=== PATIENT | male | born 1965 | race African-American/Black ===

== ENCOUNTER 2016-10-25 00:17 | Inpatient (IN) | payer OTHER ==
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
[2016-10-25 00:34] VITALS: BMI 21.2
[2016-10-25] MEDS ORDERED: hydrOXYzine PAMOATE 25 MG CAPSULE (FP) PO PRN (00:34)
[2016-10-25] MEDS ORDERED: guaiFENesin/D-METHORPHAN HB 10 ML UNIT-DOSE CUPS PO PRN (00:34)
[2016-10-25] MEDS ORDERED: MENTHOL/PHENOL 1 EACH UD MM PRN (00:34)
[2016-10-25] MEDS ORDERED: chlordiazePOXIDE HCL 25 MG CAPSULE PO PRN (00:34)
[2016-10-25] MEDS ORDERED: P-EPHED 60MG/TRIPROLIDI 2.5MG TABLET PO PRN (00:34)
[2016-10-25] MEDS ORDERED: LOPERAMIDE HCL 2 MG CAPSULE PO PRN (00:34)
[2016-10-25] MEDS ORDERED: IBUPROFEN 400 MG TABLET (FP) PO PRN (00:34)
[2016-10-25] MEDS ORDERED: MAGNESIUM CITRATE 300 ML BOTTLE PO PRN (00:34)
[2016-10-25] MEDS ORDERED: ACETAMINOPHEN 325 MG TABLET (FP) PO PRN (00:34)
[2016-10-25] MEDS ORDERED: NICOTINE POLACRILEX 4 MG GUM BUC PRN (00:34)
[2016-10-25] MEDS ORDERED: chlordiazePOXIDE HCL 25 MG CAPSULE PO ONE (00:34)
[2016-10-25] MEDS ORDERED: MAGNESIUM HYDROX 2400MG/30ML ORAL SUSPENSION 30 ML CUP PO PRN (00:34)
[2016-10-25] MEDS ORDERED: MAG HYDROX/AL HYDROX/SIMETH 30 ML UNIT-DOSE CUP PO PRN (00:34)
[2016-10-25] MEDS: chlordiazePOXIDE HCL 25 MG CAPSULE PO SCH ×4 (05:30→22:18)
[2016-10-25] MEDS: NICOTINE 21 MG/24 HOURS TOPICAL PATCH TD SCH (10:23)
[2016-10-25] MEDS: PRENATAL VITAMINS W/ FOLIC ACID TABLET (FP) PO SCH (10:23)
--- NOTE | 2016-10-25 12:50 | EKG ---
Test Reason : Blood Pressure : / mmHG Vent. Rate : 061 BPM Atrial Rate : 061 BPM P-R Int : 190 ms QRS Dur : 084 ms QT Int : 378 ms P-R-T Axes : 067 074 053 degrees QTc Int : 380 ms NORMAL SINUS RHYTHM ST ELEVATION, CONSIDER EARLY REPOLARIZATION BORDERLINE ECG NO PREVIOUS ECGS AVAILABLE Confirmed by MINDY PRIDE MD ([id number]) on 10/25/2016 12:50:06 PM Referred By: Confirmed By:MINDY PRIDE MD
[2016-10-25 13:18] LABS: HIV 1 & 2 AB NEGATIVE; HIV 1 AGp24 NEGATIVE
[2016-10-25 14:44] LABS: URINE APPEARANCE CLEAR; URINE BILIRUBIN NEGATIVE (NEGATIVE); URINE BLOOD NEGATIVE (NEGATIVE); URINE COLOR YELLOW; URINE GLUCOSE (UA) NEGATIVE (NEGATIVE); URINE KETONE NEGATIVE (NEGATIVE); URINE LEUK ESTERASE NEGATIVE (NEGATIVE); URINE NITRITE NEGATIVE (NEGATIVE); URINE PROTEIN NEGATIVE (NEGATIVE); URINE UROBILINOGEN 4.0 E.U/dl mg/dL (0.2-1.0)
--- NOTE | 2016-10-25 15:16 | PN ---
[facility] Progress Note Note: Patient seen this morning. He reports feeling tired and just wants to sleep. He denies sob, chest pain, abdominal pain, n/v/c/d. He is presently resting in bed comfortably. Continue to monitor.
[2016-10-25] MEDS: THIAMINE HCL 100 MG TABLET (FP) PO SCH (22:18)
[2016-10-25] MEDS: diphenhydrAMINE HCL 50 MG CAPSULE PO PRN (22:18)
[2016-10-26] MEDS: chlordiazePOXIDE HCL 25 MG CAPSULE PO SCH ×4 (05:48→22:09)
[2016-10-26 10:08] LABS: MCH 28.6 pg (25.7-33.7); MCHC 33.8 g/dl (32.0-35.9); MEAN CELL VOLUME 84.6 fl (80-96); MEAN PLT VOLUME 9.4 fl (7.5-11.1); PLATELET COUNT 245 K/MM3 (134-434); RDW 14.4 % (11.9-15.9); WHITE BLOOD COUNT 6.2 K/mm3 (4.0-10.0)
[2016-10-26] MEDS: PRENATAL VITAMINS W/ FOLIC ACID TABLET (FP) PO SCH (10:15)
[2016-10-26] MEDS: NICOTINE 21 MG/24 HOURS TOPICAL PATCH TD SCH (10:17)
[2016-10-26 10:35] LABS: ALBUMIN 3.1 g/dl (3.4-5.0); ALK PHOS 59 U/L (45-117); ANION GAP 6 (8-16); BILIRUBIN,TOTAL 0.8 mg/dL (0.2-1.0); CALCIUM 8.6 mg/dL (8.5-10.1); CO2 29 mmol/L (21-32); CREATININE 1.2 mg/dL (0.7-1.3); GLUCOSE,RANDOM 69 mg/dL (74-106); SGOT/AST 26 U/L (15-37); SGPT/ALT 23 U/L (12-78); TOT PROT 5.5 g/dl (6.4-8.2)
--- NOTE | 2016-10-26 13:08 | PN ---
[facility] CIWA - CIWA Score Nausea/Vomitin-Mild Nausea/No Vomiting Muscle Tremors: 4-Moderate,w/Arms Extend Anxiety: 3 Agitation: 0-Normal Activity Paroxysmal Sweats: 3 Orientation: 2-Disoriented Date<2 days Tacttile Disturbances: 2-Mild Itch/Numbness/Burn Auditory Disturbances: 0-None Visual Disturbances: 3-Moderate Sensitivity Headache: 0-None Present CIWA-Ar Total Score: 18 S Progress Note (SOAP) Subjective: Tremors, Sweating. Objective: PT. A & O X 2 (DISORIENTED ABOUT DAY / DATE). NO ACUTE DISTRESS. 10/26/16 13:02 Vital Signs Temperature 97 F L 10/26/16 13:00 Pulse Rate 50 L 10/26/16 13:00 Respiratory Rate 20 10/26/16 13:00 Blood Pressure 121/85 10/26/16 13:00 O2 Sat by Pulse Oximetry (%) Laboratory Tests 10/25/16 10/25/16 10/26/16 07:45 09:20 06:00 WBC 6.2 RBC 4.51 Hgb 12.9 Hct 38.2 MCV 84.6 MCH 28.6 MCHC 33.8 RDW 14.4 Plt Count 245 MPV 9.4 Sodium Potassium Chloride Carbon Dioxide Anion Gap BUN Creatinine Creat Clearance w eGFR Random Glucose Calcium Total Bilirubin AST ALT Alkaline Phosphatase Total Protein Albumin Urine Color Yellow Urine Appearance Clear Urine pH 6.0 Ur Specific [place] 1.025 Urine Protein Negative Urine Glucose (UA) Negative Urine Ketones Negative Urine Blood Negative Urine Nitrite Negative Urine Bilirubin Negative Urine Urobilinogen 4.0 e.u/dl Ur Leukocyte Esterase Negative RPR Titer HIV 1&2 Antibody Screen Negative HIV P24 Antigen Negative 10/26/16 10/26/16 06:00 06:00 WBC RBC Hgb Hct MCV MCH MCHC RDW Plt Count MPV Sodium 144 Potassium 3.4 L Chloride 109 H Carbon Dioxide 29 Anion Gap 6 L BUN 19 H Creatinine 1.2 Creat Clearance w eGFR > 60 Random Glucose 69 L Calcium 8.6 Total Bilirubin 0.8 D AST 26 ALT 23 Alkaline Phosphatase 59 Total Protein 5.5 L Albumin 3.1 L Urine Color Urine Appearance Urine pH Ur Specific [place] Urine Protein Urine Glucose (UA) Urine Ketones Urine Blood Urine Nitrite Urine Bilirubin Urine Urobilinogen Ur Leukocyte Esterase RPR Titer Nonreactive HIV 1&2 Antibody Screen HIV P24 Antigen LABS NOTED. Assessment: 10/26/16 13:08 WITHDRAWAL SYMPTOMS. Plan: CONTINUE DETOX. K, 20 MEQ PO X1 NOW, THEN 20 MEQ PO BID AFTER.
--- NOTE | 2016-10-26 14:32 | CONSULT ---
[facility] Psychiatric Consult - Data Date of interview: 10/26/16 Admission source: [facility] Identifying data: Readmission to [facility] for this 51 y/o AA male seeking detox treatment on for alcohol,cocaine and marihuana dependence.Patient is single without children,domiciled,unemployed and supported on SSI benefits. Substance Abuse History: Discussed with patient in this session.Mr Ibarra confirms this report. Smoking Cessation. Smoking history: Current every day smoker. Have you smoked in the past 12 months: Yes. Aproximately how many cigarettes per day: 40. Cigars Per Day: 0. Hx Chewing Tobacco Use: No. Initiated information on smoking cessation: Yes. 'Breaking Loose' booklet given : 10/25/16. - Substance & Tx. History. Hx Alcohol Use: Yes. Hx Substance Use : Yes. Substance Use Type: Alcohol, Cocaine, Marijuana. Hx Substance Use Treatment: Yes. - Substances Abused. Alcohol. Route: Oral. Frequency: Daily. Amount used: BEER 1X6 PKS/LIQUOR 1/2 P/D. Age of first use: 30. Date of Last Use: 10/24/16. Crack. Route: Smoking. Frequency: 1-3 times last 30 days. Amount used: $20/EACH TIME. Age of first use: 32. Date of Last Use: 10/24/16. Marijuana/Hashish. Route: Smoking. Frequency: Daily. Amount used: $10. Age of first use: 16. Date of Last Use: 10/24/16 Medical History: Hypertension. Psychiatric History: Patient denies history of psychiatric hospitalizations.No psychiatric diagnosis reported.Vague historian.Mr Ibarra indicates that he sees a " therapist in town " because his female friend had " asked me to do so ".No history of suicide attempts.Not on psychotropic medications. Physical/Sexual Abuse/Trauma History: Patient denies. Additional Comment: Urine Drug Screen Results: THC-Marijuana, UJAN JOSÉ-Cocaine.Noted. Mental Status Exam - Mental Status Exam Alert and Oriented to: Time, Place, Person Cognitive Function: Good Patient Appearance: Well Groomed Mood: Hopeful, Euthymic Affect: Appropriate, Normal Range Patient Behavior: Fatigued, Appropriate, Cooperative Speech Pattern: Clear Voice Loudness: Normal Thought Process: Intact, Goal Oriented Thought Disorder: Not Present Hallucinations: Denies Suicidal Ideation: Denies Homicidal Ideation: Denies Insight/Judgement: Poor Sleep: Well Appetite: Good Muscle strength/Tone: Normal Gait/Station: Normal Psychiatric Findings - Problem List ([place] 1, 2,3) (1) Alcohol dependence Current Visit: Yes Status: Acute (2) Cocaine dependence Current Visit: Yes Status: Acute Qualifiers: Substance use status: uncomplicated Qualified Code(s): F14.20 - Cocaine dependence, uncomplicated (3) Marijuana dependence Current Visit: Yes Status: Acute (4) Nicotine dependence Current Visit: Yes Status: Acute Qualifiers: Nicotine product type: cigarettes Substance use status: uncomplicated Qualified Code(s): F17.210 - Nicotine dependence, cigarettes, uncomplicated - Initial Treatment Plan Initial Treatment Plan: Psychoeducation.Detoxification.Observation.Medications reconciliation : no known medications.
[2016-10-26] MEDS ORDERED: POTASSIUM CHLORIDE TABS 20 MEQ TABLET.ER (FP) PO ONE (15:15)
[2016-10-26] MEDS: POTASSIUM CHLORIDE TABS 20 MEQ TABLET.ER (FP) PO SCH (17:06)
[2016-10-26] MEDS: THIAMINE HCL 100 MG TABLET (FP) PO SCH (22:09)
[2016-10-26] MEDS: diphenhydrAMINE HCL 50 MG CAPSULE PO PRN (22:10)
[2016-10-27] MEDS: chlordiazePOXIDE 5 MG CAPSULE PO SCH ×4 (05:52→22:18)
[2016-10-27] MEDS: PRENATAL VITAMINS W/ FOLIC ACID TABLET (FP) PO SCH (10:11)
[2016-10-27] MEDS: POTASSIUM CHLORIDE TABS 20 MEQ TABLET.ER (FP) PO SCH ×2 (10:11→17:03)
[2016-10-27] MEDS: NICOTINE 21 MG/24 HOURS TOPICAL PATCH TD SCH (10:11)
--- NOTE | 2016-10-27 11:22 | PN ---
[facility] CIWA - CIWA Score Nausea/Vomitin-Mild Nausea/No Vomiting Muscle Tremors: 3 Anxiety: 4-Mod. Anxious/Guarded Agitation: 3 Paroxysmal Sweats: 3 Orientation: 0-Oriented Tacttile Disturbances: 2-Mild Itch/Numbness/Burn Auditory Disturbances: 0-None Visual Disturbances: 0-None Headache: 0-None Present CIWA-Ar Total Score: 16 BHS Progress Note (SOAP) Subjective: Tremors, Anxious, Fatigue. Objective: PT. A & O X 3, OBSERVED AMBULATING ON UNIT. NO ACUTE DISTRESS. 10/27/16 11:20 Vital Signs Temperature 97.9 F 10/27/16 09:25 Pulse Rate 49 L 10/27/16 09:25 Respiratory Rate 18 10/27/16 09:25 Blood Pressure 141/91 10/27/16 09:25 O2 Sat by Pulse Oximetry (%) Laboratory Tests 10/25/16 10/25/16 10/26/16 07:45 09:20 06:00 WBC 6.2 RBC 4.51 Hgb 12.9 Hct 38.2 MCV 84.6 MCH 28.6 MCHC 33.8 RDW 14.4 Plt Count 245 MPV 9.4 Sodium Potassium Chloride Carbon Dioxide Anion Gap BUN Creatinine Creat Clearance w eGFR Random Glucose Calcium Total Bilirubin AST ALT Alkaline Phosphatase Total Protein Albumin Urine Color Yellow Urine Appearance Clear Urine pH 6.0 Ur Specific [place] 1.025 Urine Protein Negative Urine Glucose (UA) Negative Urine Ketones Negative Urine Blood Negative Urine Nitrite Negative Urine Bilirubin Negative Urine Urobilinogen 4.0 e.u/dl Ur Leukocyte Esterase Negative RPR Titer HIV 1&2 Antibody Screen Negative HIV P24 Antigen Negative 10/26/16 10/26/16 06:00 06:00 WBC RBC Hgb Hct MCV MCH MCHC RDW Plt Count MPV Sodium 144 Potassium 3.4 L Chloride 109 H Carbon Dioxide 29 Anion Gap 6 L BUN 19 H Creatinine 1.2 Creat Clearance w eGFR > 60 Random Glucose 69 L Calcium 8.6 Total Bilirubin 0.8 D AST 26 ALT 23 Alkaline Phosphatase 59 Total Protein 5.5 L Albumin 3.1 L Urine Color Urine Appearance Urine pH Ur Specific [place] Urine Protein Urine Glucose (UA) Urine Ketones Urine Blood Urine Nitrite Urine Bilirubin Urine Urobilinogen Ur Leukocyte Esterase RPR Titer Nonreactive HIV 1&2 Antibody Screen HIV P24 Antigen LABS NOTED. Assessment: 10/27/16 11:20 WITHDRAWAL SYMPTOMS. HYPOKALEMIA. 10/27/16 11:22 Plan: CONTINUE DETOX.
[2016-10-27] MEDS: diphenhydrAMINE HCL 50 MG CAPSULE PO PRN (22:18)
[2016-10-27] MEDS: THIAMINE HCL 100 MG TABLET (FP) PO SCH (22:18)
[2016-10-28] MEDS: chlordiazePOXIDE HCL 10 MG CAPSULE PO SCH ×2 (07:41→10:32)
[2016-10-28 09:25] VITALS: BP 120/82; PULSE 57; TEMP 97.3
[2016-10-28] MEDS: NICOTINE 21 MG/24 HOURS TOPICAL PATCH TD SCH (10:12)
[2016-10-28] MEDS: POTASSIUM CHLORIDE TABS 20 MEQ TABLET.ER (FP) PO SCH (10:12)
[2016-10-28] MEDS: PRENATAL VITAMINS W/ FOLIC ACID TABLET (FP) PO SCH (10:12)
--- NOTE | 2016-10-28 16:40 | DS ---
[facility] Detox Discharge Summary Admission Date: 10/25/16 Discharge Date: 10/28/16 - History Present History: Alcohol Dependence, Cannabis Dependence, Cocaine Dependence Additional Comments: PATIENT GOING TO [facility]. PATIENT ADVISED TO FOLLOW -UP THERE PER DISCHARGE ARRANGEMENT. PATIENT DISCHARGED FROM UNIT IN STABLE MEDICAL CONDITION. Pertinent Past History: Anxiety / Depression. - Physical Exam Results Vital Signs: Vital Signs Temperature 97.3 F L 10/28/16 09:24 Pulse Rate 57 L 10/28/16 09:24 Respiratory Rate 18 10/28/16 09:24 Blood Pressure 120/82 10/28/16 09:24 O2 Sat by Pulse Oximetry (%) Pertinent Admission Physical Exam Findings: WITHDRAWAL SYMPTOMS. Laboratory Tests 10/25/16 10/25/16 10/26/16 07:45 09:20 06:00 WBC 6.2 RBC 4.51 Hgb 12.9 Hct 38.2 MCV 84.6 MCH 28.6 MCHC 33.8 RDW 14.4 Plt Count 245 MPV 9.4 Sodium Potassium Chloride Carbon Dioxide Anion Gap BUN Creatinine Creat Clearance w eGFR Random Glucose Calcium Total Bilirubin AST ALT Alkaline Phosphatase Total Protein Albumin Urine Color Yellow Urine Appearance Clear Urine pH 6.0 Ur Specific [place] 1.025 Urine Protein Negative Urine Glucose (UA) Negative Urine Ketones Negative Urine Blood Negative Urine Nitrite Negative Urine Bilirubin Negative Urine Urobilinogen 4.0 e.u/dl Ur Leukocyte Esterase Negative RPR Titer HIV 1&2 Antibody Screen Negative HIV P24 Antigen Negative 10/26/16 10/26/16 06:00 06:00 WBC RBC Hgb Hct MCV MCH MCHC RDW Plt Count MPV Sodium 144 Potassium 3.4 L Chloride 109 H Carbon Dioxide 29 Anion Gap 6 L BUN 19 H Creatinine 1.2 Creat Clearance w eGFR > 60 Random Glucose 69 L Calcium 8.6 Total Bilirubin 0.8 D AST 26 ALT 23 Alkaline Phosphatase 59 Total Protein 5.5 L Albumin 3.1 L Urine Color Urine Appearance Urine pH Ur Specific [place] Urine Protein Urine Glucose (UA) Urine Ketones Urine Blood Urine Nitrite Urine Bilirubin Urine Urobilinogen Ur Leukocyte Esterase RPR Titer Nonreactive HIV 1&2 Antibody Screen HIV P24 Antigen LABS NOTED. - Treatment Hospital Course: Detox Protocol Followed, Detoxed Safely, Responded well, Discharged Condition Good, Rehab Referral Accepted Patient has Accepted a Rehab Referral to: [facility]. - Medication Discharge Medications: Ambulatory Orders NK [No Known Home Medication] 04/11/14 - Diagnosis (1) Alcohol dependence Status: Acute (2) Cocaine dependence Status: Acute Qualifiers: Substance use status: uncomplicated Qualified Code(s): F14.20 - Cocaine dependence, uncomplicated (3) Marijuana dependence Status: Acute (4) Nicotine dependence Status: Chronic Qualifiers: Nicotine product type: cigarettes Substance use status: uncomplicated Qualified Code(s): F17.210 - Nicotine dependence, cigarettes, uncomplicated (5) Anxiety and depression Status: Chronic - AMA Did Patient Leave Against Medical Advice: No
== END 2016-10-28 12:52 | disposition other institution (70) | DRG 774 ==
LOC: YASAS 00:17 → Y3N 01:10
PROVIDERS: ADMIT Internal Medicine; ATTEND Internal Medicine
PROC: HZ2ZZZZ Detoxification Services for Substance Abuse Treatment (ICD-10-PCS; principal; 2016-10-28)
DX: F10.20 Alcohol dependence, uncomplicated (principal); F14.20 Cocaine dependence, uncomplicated; F12.20 Cannabis dependence, uncomplicated; F17.210 Nicotine dependence, cigarettes, uncomplicated; F41.8 Other specified anxiety disorders; Z87.828 Personal history of other (healed) physical injury and trauma
CPT/HCPCS: 36415; 80053; 81003; 85027; 86593; 87389; 93005; 93010

== ENCOUNTER 2016-10-28 12:17 | Inpatient (IN) | payer OTHER ==
--- NOTE | 2016-10-28 12:49 | HP ---
[facility] Rehab Assess/Revision - Admission History Ad[facility] Rehab [facility] Date of Admission to Rehab: 10/28/16 - Findings Detox History & Physical reviewed: Yes Concur with findings: Yes Comments/Additional Findings: for rehab as protocol
[2016-10-28] MEDS ORDERED: guaiFENesin/D-METHORPHAN HB 10 ML UNIT-DOSE CUPS PO PRN (12:51)
[2016-10-28] MEDS ORDERED: LOPERAMIDE HCL 2 MG CAPSULE PO PRN (12:51)
[2016-10-28] MEDS ORDERED: MAGNESIUM HYDROX 2400MG/30ML ORAL SUSPENSION 30 ML CUP PO PRN (12:51)
[2016-10-28] MEDS ORDERED: MAGNESIUM CITRATE 300 ML BOTTLE PO PRN (12:51)
[2016-10-28] MEDS ORDERED: IBUPROFEN 400 MG TABLET (FP) PO PRN (12:51)
[2016-10-28] MEDS ORDERED: hydrOXYzine PAMOATE 50 MG CAPSULE (FP) PO PRN (12:51)
[2016-10-28] MEDS ORDERED: ACETAMINOPHEN 325 MG TABLET (FP) PO PRN (12:51)
[2016-10-28] MEDS ORDERED: P-EPHED 60MG/TRIPROLIDI 2.5MG TABLET PO PRN (12:51)
[2016-10-28] MEDS ORDERED: MAG HYDROX/AL HYDROX/SIMETH 30 ML UNIT-DOSE CUP PO PRN (12:51)
[2016-10-28] MEDS ORDERED: MENTHOL/PHENOL 1 EACH UD MM PRN (12:51)
[2016-10-28] MEDS: THIAMINE HCL 100 MG TABLET (FP) PO SCH (22:07)
[2016-10-28] MEDS: diphenhydrAMINE HCL 50 MG CAPSULE PO PRN (22:07)
[2016-10-29] MEDS: POTASSIUM CHLORIDE TABS 20 MEQ TABLET.ER (FP) PO SCH (10:39)
[2016-10-29] MEDS: PRENATAL VITAMINS W/ FOLIC ACID TABLET (FP) PO SCH (10:39)
--- NOTE | 2016-10-29 13:10 | HP ---
Psychiatrist Admission - Data Date of interview: 10/29/16 Admission source: [facility] Identifying data: This is the forth 5N inpatient rehabilitation admission for this 51 year old single Black male who is single unmeployed and on SSI, residing in [place] with his sister. Medical History: HTN, smokes cigaretets 30 a day. Psychiatric History: Patient denies history of psychiatric hospitalization, reports he saw the therapist "just to talk". Physical/Sexual Abuse/Trauma History: Denies. Vital Signs: Vital Signs - 24 hr 10/28/16 10/29/16 10/29/16 13:22 00:30 03:30 Temperature 98 F Pulse Rate 60 Respiratory 18 18 18 Rate Blood Pressure 126/84 10/29/16 07:05 Temperature 97.6 F Pulse Rate 53 L Respiratory 18 Rate Blood Pressure 144/89 Allergies/Adverse Reactions: Allergies Allergy/AdvReac Type Severity Reaction Status Date / Time No Known Allergies Allergy Verified 10/28/16 13:47 Date of last physical exam: 10/24/16 Concur with the findings of this exam: Yes - Substance Abuse/Tx History Hx Alcohol Use: Yes (started at age of 30, beer 1x6pks daily, liquor 1/2 pint ) Hx Substance Use: Yes Substance Use Type: Cocaine (started at age 32, 1-3 times last months for $20.) , Marijuana (daily use) Hx Substance Use Treatment: Yes - Admission Criteria Previous failed treatment: Yes Poor recovery environment: Yes Comorbidities: Yes Lacks judgement: Yes Mental Status Exam - Mental Status Exam Alert and Oriented to: Time, Place, Person Cognitive Function: Good Patient Appearance: Well Groomed Mood: Sad Affect: Appropriate, Mood Congruent, Normal Range, Blunted Patient Behavior: Appropriate, Cooperative Speech Pattern: Clear, Appropriate Voice Loudness: Normal Thought Process: Goal Oriented Thought Disorder: Not Present Hallucinations: Denies Suicidal Ideation: Denies Homicidal Ideation: Denies Insight/Judgement: Fair Sleep: Fair Appetite: Fair Muscle strength/Tone: Normal Gait/Station: Normal Psychiatric Findings - Problem List ([place] 1, 2,3) (1) Alcohol dependence Current Visit: No Status: Acute (2) Cocaine dependence Current Visit: No Status: Acute Qualifiers: Substance use status: uncomplicated Qualified Code(s): F14.20 - Cocaine dependence, uncomplicated (3) Marijuana dependence Current Visit: No Status: Acute (4) Drug-induced mood disorder Current Visit: No Status: Chronic - Initial Treatment Plan Initial Treatment Plan: monitor rpogress as needed.
[2016-10-29] MEDS: THIAMINE HCL 100 MG TABLET (FP) PO SCH (21:49)
[2016-10-29] MEDS: diphenhydrAMINE HCL 50 MG CAPSULE PO PRN (21:50)
[2016-10-30] MEDS: PRENATAL VITAMINS W/ FOLIC ACID TABLET (FP) PO SCH (10:43)
[2016-10-30] MEDS: POTASSIUM CHLORIDE TABS 20 MEQ TABLET.ER (FP) PO SCH (10:43)
[2016-10-30] MEDS: THIAMINE HCL 100 MG TABLET (FP) PO SCH (21:42)
[2016-10-30] MEDS: diphenhydrAMINE HCL 50 MG CAPSULE PO PRN (21:42)
[2016-10-31] MEDS: PRENATAL VITAMINS W/ FOLIC ACID TABLET (FP) PO SCH (10:11)
[2016-10-31] MEDS: POTASSIUM CHLORIDE TABS 20 MEQ TABLET.ER (FP) PO SCH (10:11)
[2016-10-31] MEDS: diphenhydrAMINE HCL 50 MG CAPSULE PO PRN (21:29)
[2016-10-31] MEDS: THIAMINE HCL 100 MG TABLET (FP) PO SCH (21:29)
[2016-11-01] MEDS: PRENATAL VITAMINS W/ FOLIC ACID TABLET (FP) PO SCH (10:28)
[2016-11-01] MEDS: POTASSIUM CHLORIDE TABS 20 MEQ TABLET.ER (FP) PO SCH (10:28)
[2016-11-01] MEDS: THIAMINE HCL 100 MG TABLET (FP) PO SCH (22:04)
[2016-11-01] MEDS: diphenhydrAMINE HCL 50 MG CAPSULE PO PRN (22:04)
[2016-11-02 10:20] LABS: ANION GAP 7 (8-16); CALCIUM 8.8 mg/dL (8.5-10.1); CO2 30 mmol/L (21-32); GLUCOSE,RANDOM 80 mg/dL (74-106)
[2016-11-02 10:21] LABS: CREATININE 1.1 mg/dL (0.7-1.3)
[2016-11-02] MEDS: PRENATAL VITAMINS W/ FOLIC ACID TABLET (FP) PO SCH (10:53)
--- NOTE | 2016-11-02 11:40 | PN ---
S Progress Note Note: Laboratory Last Values Sodium 141 mmol/L (136-145) 11/02/16 06:30 Potassium 4.3 mmol/L (3.5-5.1) D 11/02/16 06:30 Chloride 104 mmol/L (98-107) 11/02/16 06:30 Carbon Dioxide 30 mmol/L (21-32) 11/02/16 06:30 Anion Gap 7 (8-16) L 11/02/16 06:30 BUN 23 mg/dL (7-18) H D 11/02/16 06:30 Creatinine 1.1 mg/dL (0.7-1.3) 11/02/16 06:30 Random Glucose 80 mg/dL (74-106) 11/02/16 06:30 Calcium 8.8 mg/dL (8.5-10.1) 11/02/16 06:30 encourage oral fluid repeat bmp next week
[2016-11-02] MEDS ORDERED: COLLOIDAL OATMEAL 1 BAR EACH TP PRN (12:51)
[2016-11-02] MEDS: diphenhydrAMINE HCL 50 MG CAPSULE PO PRN (21:55)
[2016-11-02] MEDS: THIAMINE HCL 100 MG TABLET (FP) PO SCH (21:55)
[2016-11-03] MEDS: PRENATAL VITAMINS W/ FOLIC ACID TABLET (FP) PO SCH (10:56)
[2016-11-03] MEDS: THIAMINE HCL 100 MG TABLET (FP) PO SCH (21:43)
[2016-11-03] MEDS: diphenhydrAMINE HCL 50 MG CAPSULE PO PRN (21:44)
[2016-11-04 07:01] VITALS: TEMP 98.3
[2016-11-04] MEDS: PRENATAL VITAMINS W/ FOLIC ACID TABLET (FP) PO SCH (10:21)
[2016-11-04] MEDS: diphenhydrAMINE HCL 50 MG CAPSULE PO PRN (22:04)
[2016-11-04] MEDS: THIAMINE HCL 100 MG TABLET (FP) PO SCH (22:04)
[2016-11-05 07:21] VITALS: BP 140/97; PULSE 64
[2016-11-05] MEDS: PRENATAL VITAMINS W/ FOLIC ACID TABLET (FP) PO SCH (10:17)
--- NOTE | 2016-11-05 10:45 | PN ---
Psychiatric Progress Note Vital Signs: Vital Signs Period Temp Pulse Resp BP Sys/Hayes Pulse Ox Last 24 Hr 98.3 F 64 16-16 140/97 Date of Session: 11/05/16 Chief Complaint:: discharge visit HPI: Patient has addressed cocaine, cannabis, alcohol dependence comorbid drug induced mood disorder. ROS: HTN medically managed. Current Medications: Active Medications Generic Name Dose Route Start Last Admin Trade Name Freq PRN Reason Stop Dose Admin Acetaminophen 650 mg 10/28/16 12:51 Tylenol - PO Q4H PRN FEVER OR PAIN Al Hydroxide/Mg Hydroxide 30 ml 10/28/16 12:51 Mylanta Oral Suspension - PO Q6H PRN DYSPEPSIA Colloidal Oatmeal 1 applic 11/02/16 12:51 11/02/16 15:44 Aveeno Soap - TP 1 applic DAILY PRN Administration HYGEINE Diphenhydramine HCl 50 mg 10/28/16 12:51 11/04/16 22:04 Benadryl - PO 50 mg HSMR1 PRN Administration FOR ITCHING Eucalyptus/Menthol/Phenol/Sorbitol 1 each 10/28/16 12:51 Cepastat Lozenge - MM Q4H PRN SORE THROAT Guaifenesin 10 ml 10/28/16 12:51 Robitussin Dm - PO Q6H PRN COUGH Hydroxyzine Pamoate 50 mg 10/28/16 12:51 Vistaril - PO Q4H PRN AGITATION Ibuprofen 400 mg 10/28/16 12:51 Motrin - PO Q6H PRN PAIN Loperamide HCl 4 mg 10/28/16 12:51 Imodium - PO Q6H PRN DIARRHEA Magnesium Hydroxide 30 ml 10/28/16 12:51 Milk Of Magnesia - PO DAILY PRN CONSTIPATION Multivit/Folic Acid/Iron 1 tab 10/29/16 10:00 11/05/16 10:17 Vitamins ([facility]) - PO 1 tab DAILY TANVI Administration Pseudoephedrine/Triprolidine 1 combo 10/28/16 12:51 Actifed - PO TID PRN NASAL CONGESTION Thiamine HCl 100 mg 10/28/16 22:00 11/04/16 22:04 Vitamin B1 - PO 100 mg HS TANVI Administration Current Side Effect: No Lab tests ordered: No Lab tests reviewed: Yes Provider note:: Patient completed today his treatment and met his goals, will continue to address his issues at the next level of care([facility] opd). He understands the negative impact of addiction on his major life areas and motivated to continue maintain abstinence. Patient was encouraged to utilize all supports available to prevent relapses. Patient is stable for discharge today. Total face to face time:: 15 Mental Status Exam - Mental Status Exam Alert and Oriented to: Time, Place, Person Cognitive Function: Good Patient Appearance: Well Groomed Mood: Hopeful Affect: Appropriate, Mood Congruent Patient Behavior: Appropriate, Cooperative Speech Pattern: Clear, Appropriate Voice Loudness: Normal Thought Process: Intact, Goal Oriented Thought Disorder: Not Present Hallucinations: Denies Suicidal Ideation: Denies Homicidal Ideation: Denies Insight/Judgement: Fair Sleep: Fair Appetite: Fair Muscle strength/Tone: Normal Gait/Station: Normal Psychiatric Treatment Plan - Problem List (2) Cocaine dependence Qualifiers: Substance use status: uncomplicated Qualified Code(s): F14.20 - Cocaine dependence, uncomplicated
== END 2016-11-05 11:15 | disposition home or self-care (01) | DRG 772 ==
LOC: YASAS 12:17 → Y5N 12:18
PROVIDERS: ADMIT Psychiatry & Neurology Psychiatry; ATTEND Psychiatry & Neurology Psychiatry
PROC: HZ42ZZZ Group Counseling for Substance Abuse Treatment, Cognitive-Behavioral (ICD-10-PCS; principal; 2016-10-28)
DX: F10.20 Alcohol dependence, uncomplicated (principal); F14.20 Cocaine dependence, uncomplicated; F12.20 Cannabis dependence, uncomplicated; F17.210 Nicotine dependence, cigarettes, uncomplicated; F19.24 Other psychoactive substance dependence with psychoactive substance-induced mood disorder
CPT/HCPCS: 36415; 80048

== ENCOUNTER 2017-01-14 13:54 | Inpatient (IN) | payer OTHER ==
[2017-01-14 16:57] VITALS: BMI 20.6
[2017-01-14] MEDS ORDERED: IBUPROFEN 400 MG TABLET (FP) PO PRN (18:39)
[2017-01-14] MEDS ORDERED: MENTHOL/PHENOL 1 EACH UD MM PRN (18:39)
[2017-01-14] MEDS ORDERED: MAG HYDROX/AL HYDROX/SIMETH 30 ML UNIT-DOSE CUP PO PRN (18:39)
[2017-01-14] MEDS ORDERED: MAGNESIUM CITRATE 300 ML BOTTLE PO PRN (18:39)
[2017-01-14] MEDS ORDERED: ACETAMINOPHEN 325 MG TABLET (FP) PO PRN (18:39)
[2017-01-14] MEDS ORDERED: LOPERAMIDE HCL 2 MG CAPSULE PO PRN (18:39)
[2017-01-14] MEDS ORDERED: P-EPHED 60MG/TRIPROLIDI 2.5MG TABLET PO PRN (18:39)
[2017-01-14] MEDS ORDERED: guaiFENesin/D-METHORPHAN HB 10 ML UNIT-DOSE CUPS PO PRN (18:39)
[2017-01-14] MEDS ORDERED: MAGNESIUM HYDROX 2400MG/30ML ORAL SUSPENSION 30 ML CUP PO PRN (18:39)
[2017-01-14] MEDS ORDERED: chlordiazePOXIDE HCL 25 MG CAPSULE PO PRN (18:39)
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
[2017-01-14 22:13] LABS: URINE APPEARANCE CLEAR; URINE BILIRUBIN NEGATIVE (NEGATIVE); URINE BLOOD NEGATIVE (NEGATIVE); URINE COLOR DKYELLOW; URINE GLUCOSE (UA) NEGATIVE (NEGATIVE); URINE KETONE NEGATIVE (NEGATIVE); URINE NITRITE NEGATIVE (NEGATIVE); URINE PROTEIN NEGATIVE (NEGATIVE); URINE UROBILINOGEN 4.0 E.U/dl mg/dL (0.2-1.0)
[2017-01-14] MEDS: chlordiazePOXIDE HCL 25 MG CAPSULE PO SCH (22:18)
[2017-01-14] MEDS: THIAMINE HCL 100 MG TABLET (FP) PO SCH (22:18)
[2017-01-15] MEDS: chlordiazePOXIDE HCL 25 MG CAPSULE PO SCH ×4 (05:16→22:36)
[2017-01-15 09:47] LABS: MCH 28.1 pg (25.7-33.7); MCHC 34.1 g/dl (32.0-35.9); MEAN CELL VOLUME 82.3 fl (80-96); MEAN PLT VOLUME 8.8 fl (7.5-11.1); PLATELET COUNT 225 K/MM3 (134-434); RDW 14.5 % (11.9-15.9); WHITE BLOOD COUNT 7.5 K/mm3 (4.0-10.0)
[2017-01-15] MEDS: PRENATAL VITAMINS W/ FOLIC ACID TABLET (FP) PO SCH (10:15)
[2017-01-15 11:07] LABS: URINE LEUK ESTERASE Negative (NEGATIVE)
[2017-01-15 11:08] LABS: CALCIUM 8.4 mg/dL (8.5-10.1)
[2017-01-15 11:15] LABS: ALK PHOS 66 U/L (45-117); ANION GAP 9 (8-16); BILIRUBIN,TOTAL 0.6 mg/dL (0.2-1.0); CO2 26 mmol/L (21-32); CREATININE 1.1 mg/dL (0.7-1.3); GLUCOSE,RANDOM 94 mg/dL (74-106); SGOT/AST 16 U/L (15-37); SGPT/ALT 23 U/L (12-78); TOT PROT 5.4 g/dl (6.4-8.2)
--- NOTE | 2017-01-15 11:58 | EKG ---
Test Reason : Blood Pressure : / mmHG Vent. Rate : 059 BPM Atrial Rate : 059 BPM P-R Int : 180 ms QRS Dur : 072 ms QT Int : 390 ms P-R-T Axes : 062 080 061 degrees QTc Int : 386 ms SINUS BRADYCARDIA MODERATE VOLTAGE CRITERIA FOR LVH, MAY BE NORMAL VARIANT CANNOT RULE OUT SEPTAL INFARCT , AGE UNDETERMINED ABNORMAL ECG WHEN COMPARED WITH ECG OF 25-OCT-2016 00:41, MINIMAL CRITERIA FOR SEPTAL INFARCT ARE NOW PRESENT ST NO LONGER ELEVATED IN ANTERIOR LEADS Confirmed by MELISSA HAMILTON MD ([id number]) on 01/15/2017 11:58:31 AM Referred By: Confirmed By:MELISSA HAMILTON MD
[2017-01-15] MEDS ORDERED: FLU VACCINE QUAD 60 MCG/0.5 ML (MDV 17-18) IM ONE (12:00)
[2017-01-15] MEDS: THIAMINE HCL 100 MG TABLET (FP) PO SCH (22:36)
[2017-01-16] MEDS: chlordiazePOXIDE HCL 25 MG CAPSULE PO SCH ×3 (05:16→17:10)
[2017-01-16] MEDS: PRENATAL VITAMINS W/ FOLIC ACID TABLET (FP) PO SCH (11:33)
--- NOTE | 2017-01-16 13:36 | PN ---
S CIWA - CIWA Score Nausea/Vomitin Muscle Tremors: 3 Anxiety: 3 Agitation: 2 Paroxysmal Sweats: 1-Minimal Palms Moist Orientation: 0-Oriented Tacttile Disturbances: 1-Very Mild Itch/Numbness Auditory Disturbances: 1-Very Mild Visual Disturbances: 0-None Headache: 2-Mild CIWA-Ar Total Score: 16 BHS Progress Note (SOAP) Subjective: alert,irritable,anxious,interrupted sleep,tremor Objective: 01/16/17 13:34 Vital Signs Temperature 98.0 F 01/16/17 10:32 Pulse Rate 57 L 01/16/17 10:32 Respiratory Rate 18 01/16/17 10:32 Blood Pressure 139/88 01/16/17 10:32 O2 Sat by Pulse Oximetry (%) ekg sinus bradycardia 57/min inverted t in vi,v2 no chest pain,no sob,no dizziness Laboratory Last Values WBC 7.5 K/mm3 (4.0-10.0) 01/15/17 07:35 RBC 4.69 M/mm3 (4.00-5.60) 01/15/17 07:35 Hgb 13.2 GM/dL (11.7-16.9) 01/15/17 07:35 Hct 38.6 % (35.4-49) 01/15/17 07:35 MCV 82.3 fl (80-96) 01/15/17 07:35 MCH 28.1 pg (25.7-33.7) 01/15/17 07:35 MCHC 34.1 g/dl (32.0-35.9) 01/15/17 07:35 RDW 14.5 % (11.9-15.9) 01/15/17 07:35 Plt Count 225 K/MM3 (134-434) 01/15/17 07:35 MPV 8.8 fl (7.5-11.1) 01/15/17 07:35 Sodium 144 mmol/L (136-145) 01/15/17 07:35 Potassium 3.7 mmol/L (3.5-5.1) 01/15/17 07:35 Chloride 109 mmol/L (98-107) H 01/15/17 07:35 Carbon Dioxide 26 mmol/L (21-32) 01/15/17 07:35 Anion Gap 9 (8-16) 01/15/17 07:35 BUN 24 mg/dL (7-18) H 01/15/17 07:35 Creatinine 1.1 mg/dL (0.7-1.3) 01/15/17 07:35 Creat Clearance w eGFR > 60 (>60) 01/15/17 07:35 Random Glucose 94 mg/dL (74-106) 01/15/17 07:35 Calcium 8.4 mg/dL (8.5-10.1) L 01/15/17 07:35 Total Bilirubin 0.6 mg/dL (0.2-1.0) D 01/15/17 07:35 AST 16 U/L (15-37) D 01/15/17 07:35 ALT 23 U/L (12-78) 01/15/17 07:35 Alkaline Phosphatase 66 U/L (45-117) 01/15/17 07:35 Total Protein 5.4 g/dl (6.4-8.2) L 01/15/17 07:35 Albumin 3.0 g/dl (3.4-5.0) L 01/15/17 07:35 Urine Color Dkyellow 01/14/17 21:50 Urine Appearance Clear 01/14/17 21:50 Urine pH 7.0 (5.0-8.0) 01/14/17 21:50 Ur Specific [place] 1.015 (1.001-1.035) 01/14/17 21:50 Urine Protein Negative (NEGATIVE) 01/14/17 21:50 Urine Glucose (UA) Negative (NEGATIVE) 01/14/17 21:50 Urine Ketones Negative (NEGATIVE) 01/14/17 21:50 Urine Blood Negative (NEGATIVE) 01/14/17 21:50 Urine Nitrite Negative (NEGATIVE) 01/14/17 21:50 Urine Bilirubin Negative (NEGATIVE) 01/14/17 21:50 Urine Urobilinogen 4.0 e.u/dl mg/dL (0.2-1.0) 01/14/17 21:50 Ur Leukocyte Esterase Negative (NEGATIVE) 01/14/17 21:50 RPR Titer Nonreactive (NONREACTIVE) 01/15/17 07:35 Assessment: 01/16/17 13:36 withdrawal symptom Plan: continue detox,ensure plus 120 mls po bid
[2017-01-16] MEDS: THIAMINE HCL 100 MG TABLET (FP) PO SCH (22:08)
[2017-01-16] MEDS: chlordiazePOXIDE 5 MG CAPSULE PO SCH (22:08)
[2017-01-17] MEDS: chlordiazePOXIDE 5 MG CAPSULE PO SCH ×3 (05:35→17:58)
[2017-01-17] MEDS: PRENATAL VITAMINS W/ FOLIC ACID TABLET (FP) PO SCH (10:14)
--- NOTE | 2017-01-17 10:38 | PN ---
S Progress Note (SOAP) Subjective: alert,irritable,anxious,interrupted sleep Objective: 01/17/17 10:37 Vital Signs Temperature 96 F L 01/17/17 10:28 Pulse Rate 60 01/17/17 10:28 Respiratory Rate 18 01/17/17 10:28 Blood Pressure 141/85 01/17/17 10:28 O2 Sat by Pulse Oximetry (%) Assessment: 01/17/17 10:38 withdrawal symptom Plan: continue detox,discharge in am
[2017-01-17] MEDS: chlordiazePOXIDE HCL 10 MG CAPSULE PO SCH (22:10)
[2017-01-17] MEDS: THIAMINE HCL 100 MG TABLET (FP) PO SCH (22:10)
[2017-01-18] MEDS: chlordiazePOXIDE HCL 10 MG CAPSULE PO SCH ×2 (05:39→13:23)
--- NOTE | 2017-01-18 08:43 | PN ---
S CIWA - CIWA Score Nausea/Vomitin-No Nausea/No Vomiting Muscle Tremors: 4-Moderate,w/Arms Extend Anxiety: 3 Agitation: 3 Paroxysmal Sweats: 3 Orientation: 0-Oriented Tacttile Disturbances: 0-None Auditory Disturbances: 0-None Visual Disturbances: 0-None Headache: 0-None Present CIWA-Ar Total Score: 13 BHS Progress Note (SOAP) Subjective: irritable agitation sweats interrupted sleep Objective: 01/15/17 08:41 Vital Signs (72 hours) 01/15/17 01/15/17 01/15/17 10:21 15:03 18:29 Temperature 97.5 F L 97.3 F L 98.2 F Pulse Rate 59 L 69 64 Respiratory 18 20 18 Rate Blood Pressure 125/88 132/89 140/73 01/15/17 01/16/17 01/16/17 23:04 00:30 03:30 Temperature 98.2 F Pulse Rate 65 Respiratory 18 18 18 Rate Blood Pressure 126/90 01/16/17 01/16/17 01/16/17 06:25 10:32 15:12 Temperature 96.1 F L 98.0 F 98.2 F Pulse Rate 54 L 57 L 62 Respiratory 18 18 18 Rate Blood Pressure 101/71 139/88 119/83 01/16/17 01/16/17 01/17/17 18:49 23:29 00:30 Temperature 97.7 F 97.6 F Pulse Rate 71 64 Respiratory 18 18 18 Rate Blood Pressure 102/70 127/93 01/17/17 01/17/17 01/17/17 03:30 06:19 10:28 Temperature 97.3 F L 96 F L Pulse Rate 57 L 60 Respiratory 18 18 18 Rate Blood Pressure 130/90 141/85 01/17/17 01/17/17 01/17/17 13:42 18:25 22:47 Temperature 96 F L 97.7 F 97.0 F L Pulse Rate 60 68 59 L Respiratory 18 18 18 Rate Blood Pressure 133/86 126/77 123/80 01/18/17 01/18/17 00:30 06:08 Temperature 97.7 F Pulse Rate 71 Respiratory 18 18 Rate Blood Pressure 131/80 Laboratory Tests 01/14/17 01/15/17 01/15/17 21:50 07:35 07:35 WBC 7.5 RBC 4.69 Hgb 13.2 Hct 38.6 MCV 82.3 MCH 28.1 MCHC 34.1 RDW 14.5 Plt Count 225 MPV 8.8 Sodium 144 Potassium 3.7 Chloride 109 H Carbon Dioxide 26 Anion Gap 9 BUN 24 H Creatinine 1.1 Creat Clearance w eGFR > 60 Random Glucose 94 Calcium 8.4 L Total Bilirubin 0.6 D AST 16 D ALT 23 Alkaline Phosphatase 66 Total Protein 5.4 L Albumin 3.0 L Urine Color Dkyellow Urine Appearance Clear Urine pH 7.0 Ur Specific [place] 1.015 Urine Protein Negative Urine Glucose (UA) Negative Urine Ketones Negative Urine Blood Negative Urine Nitrite Negative Urine Bilirubin Negative Urine Urobilinogen 4.0 e.u/dl Ur Leukocyte Esterase Negative RPR Titer 01/15/17 07:35 WBC RBC Hgb Hct MCV MCH MCHC RDW Plt Count MPV Sodium Potassium Chloride Carbon Dioxide Anion Gap BUN Creatinine Creat Clearance w eGFR Random Glucose Calcium Total Bilirubin AST ALT Alkaline Phosphatase Total Protein Albumin Urine Color Urine Appearance Urine pH Ur Specific [place] Urine Protein Urine Glucose (UA) Urine Ketones Urine Blood Urine Nitrite Urine Bilirubin Urine Urobilinogen Ur Leukocyte Esterase RPR Titer Nonreactive aaox3 ambulating no acute distress Assessment: 01/15/17 08:42 withdrawal sx Plan: continue detox increase fluids
--- NOTE | 2017-01-18 08:44 | DS ---
[facility] Detox Discharge Summary Admission Date: 01/14/17 Discharge Date: 01/18/17 - History Present History: Alcohol Dependence, Cannabis Dependence, Cocaine Dependence - Physical Exam Results Vital Signs: Vital Signs Temperature 97.7 F 01/18/17 06:08 Pulse Rate 71 01/18/17 06:08 Respiratory Rate 18 01/18/17 06:08 Blood Pressure 131/80 01/18/17 06:08 O2 Sat by Pulse Oximetry (%) - Treatment Hospital Course: Detox Protocol Followed, Detoxed Safely, Responded well, Discharged Condition Good, Rehab Referral Accepted - Medication Discharge Medications: Ambulatory Orders NK [No Known Home Medication] 04/11/14 - Diagnosis (1) weight loss Current Visit: Yes Status: Chronic (2) Alcohol dependence with uncomplicated withdrawal Current Visit: Yes Status: Chronic (3) Nicotine dependence Current Visit: Yes Status: Chronic Qualifiers: Nicotine product type: cigarettes Substance use status: uncomplicated Qualified Code(s): F17.210 - Nicotine dependence, cigarettes, uncomplicated (4) Cannabis dependence, uncomplicated Current Visit: Yes Status: Chronic (5) Cocaine dependence, uncomplicated Current Visit: Yes Status: Chronic (6) syncope alcohol related Current Visit: No Status: Active (7) Alcohol-induced mood disorder Current Visit: No Status: Acute (8) Cocaine dependence Current Visit: No Status: Chronic Qualifiers: Substance use status: uncomplicated Qualified Code(s): F14.20 - Cocaine dependence, uncomplicated (9) Anxiety and depression Current Visit: No Status: Chronic (10) Drug-induced mood disorder Current Visit: No Status: Chronic (11) Bipolar I disorder Current Visit: No Status: Suspected - AMA Did Patient Leave Against Medical Advice: No
[2017-01-18 09:43] VITALS: BP 128/84; PULSE 63; TEMP 97.9
[2017-01-18] MEDS: PRENATAL VITAMINS W/ FOLIC ACID TABLET (FP) PO SCH (10:13)
== END 2017-01-18 13:53 | disposition home or self-care (01) | DRG 774 ==
LOC: YASAS 13:54 → Y6N 18:50
PROVIDERS: ADMIT Internal Medicine; ATTEND Internal Medicine
PROC: HZ2ZZZZ Detoxification Services for Substance Abuse Treatment (ICD-10-PCS; principal; 2017-01-14)
DX: F10.230 Alcohol dependence with withdrawal, uncomplicated (principal); F10.24 Alcohol dependence with alcohol-induced mood disorder; F14.20 Cocaine dependence, uncomplicated; F12.20 Cannabis dependence, uncomplicated; F17.210 Nicotine dependence, cigarettes, uncomplicated; F41.8 Other specified anxiety disorders; F19.24 Other psychoactive substance dependence with psychoactive substance-induced mood disorder; F31.89 Other bipolar disorder; R00.1 Bradycardia, unspecified; Z86.79 Personal history of other diseases of the circulatory system; Z87.898 Personal history of other specified conditions
CPT/HCPCS: 36415; 80053; 81003; 85027; 86593; 93005; 93010

== ENCOUNTER 2018-04-11 14:30 | Inpatient (IN) | payer OTHER ==
[2018-04-11 16:50] VITALS: BMI 28.3
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
[2018-04-11] MEDS ORDERED: ACETAMINOPHEN 325 MG TABLET (FP) PO PRN (18:22)
[2018-04-11] MEDS ORDERED: MENTHOL/PHENOL 1 EACH UD MM PRN (18:22)
[2018-04-11] MEDS ORDERED: MAGNESIUM CITRATE 300 ML BOTTLE PO PRN (18:22)
[2018-04-11] MEDS ORDERED: hydrOXYzine PAMOATE 50 MG CAPSULE (FP) PO PRN (18:22)
[2018-04-11] MEDS ORDERED: MAG HYDROX/AL HYDROX/SIMETH 30 ML UNIT-DOSE CUP PO PRN (18:22)
[2018-04-11] MEDS ORDERED: guaiFENesin/D-METHORPHAN HB 10 ML UNIT-DOSE CUPS PO PRN (18:22)
[2018-04-11] MEDS ORDERED: IBUPROFEN 400 MG TABLET (FP) PO PRN (18:22)
[2018-04-11] MEDS ORDERED: LOPERAMIDE HCL 2 MG CAPSULE PO PRN (18:22)
[2018-04-11] MEDS ORDERED: MAGNESIUM HYDROX 2400MG/30ML ORAL SUSPENSION 30 ML CUP PO PRN (18:22)
[2018-04-11] MEDS ORDERED: P-EPHED 60MG/TRIPROLIDI 2.5MG TABLET PO PRN (18:22)
[2018-04-11] MEDS ORDERED: chlordiazePOXIDE HCL 25 MG CAPSULE PO PRN (18:24)
[2018-04-11] MEDS ORDERED: chlordiazePOXIDE HCL 25 MG CAPSULE PO ONE (19:00)
[2018-04-11] MEDS ORDERED: AMMONIUM LACTATE 12% LOTION 225 GM BOTTLE TP PRN (20:00)
[2018-04-11] MEDS: chlordiazePOXIDE HCL 25 MG CAPSULE PO SCH (22:20)
[2018-04-11] MEDS: THIAMINE HCL 100 MG TABLET (FP) PO SCH (22:20)
[2018-04-12 02:22] LABS: URINE APPEARANCE CLEAR; URINE BILIRUBIN NEGATIVE (<2.0 mg/dL); URINE COLOR AMBER; URINE GLUCOSE (UA) NEGATIVE (NEGATIVE); URINE KETONE NEGATIVE (NEGATIVE); URINE LEUK ESTERASE NEGATIVE (NEGATIVE); URINE NITRITE NEGATIVE (NEGATIVE); URINE PROTEIN 1+ (NEGATIVE); URINE UROBILINOGEN 4.0 E.U/dl mg/dL (0.2-1.0)
[2018-04-12 02:32] LABS: URINE HYALINE CAST 3 /lpf; URINE MUCUS MODERATE
[2018-04-12] MEDS: chlordiazePOXIDE HCL 25 MG CAPSULE PO SCH ×4 (06:01→22:24)
[2018-04-12 10:21] LABS: ALBUMIN 2.9 g/dl (3.4-5.0); ALK PHOS 62 U/L (45-117); ANION GAP 6 MMOL/L (8-16); BILIRUBIN,TOTAL 0.4 mg/dL (0.2-1); BLOOD UREA NITROGEN 16 mg/dL (7-18); CALCIUM 8.4 mg/dL (8.5-10.1); CHLORIDE 107 mmol/L (98-107); CO2 28 mmol/L (21-32); CREATININE 1.3 mg/dL (0.55-1.3); GLUCOSE,RANDOM 97 mg/dL (74-106); POTASSIUM 3.6 mmol/L (3.5-5.1); SGOT/AST 18 U/L (15-37); SGPT/ALT 18 U/L (13-61); SODIUM 141 mmol/L (136-145); TOT PROT 5.3 g/dl (6.4-8.2)
[2018-04-12 10:23] LABS: HEMATOCRIT 39.1 % (35.4-49); HEMOGLOBIN 13.5 GM/dL (11.7-16.9); MCH 28.4 pg (25.7-33.7); MCHC 34.6 g/dl (32.0-35.9); MEAN CELL VOLUME 82.2 fl (80-96); MEAN PLT VOLUME 8.6 fl (7.5-11.1); PLATELET COUNT 248 K/MM3 (134-434); RBC 4.76 M/mm3 (4.00-5.60); WHITE BLOOD COUNT 4.6 K/mm3 (4.0-10.0)
[2018-04-12] MEDS: PRENATAL VITAMINS W/ FOLIC ACID TABLET (FP) PO SCH (10:24)
[2018-04-12] MEDS: NICOTINE 21 MG/24 HOURS TOPICAL PATCH TD SCH (10:25)
--- NOTE | 2018-04-12 15:06 | PN ---
S CIWA - CIWA Score Nausea/Vomitin-Mild Nausea/No Vomiting Muscle Tremors: 4-Moderate,w/Arms Extend Anxiety: 2 Agitation: 3 Paroxysmal Sweats: 1-Minimal Palms Moist Orientation: 1-Uncertain about Date Tacttile Disturbances: 0-None Auditory Disturbances: 0-None Visual Disturbances: 0-None Headache: 2-Mild CIWA-Ar Total Score: 14 S Progress Note (SOAP) Subjective: tremor sweating trouble sleep at night restlessness Objective: 04/12/18 15:05 Vital Signs Temperature 97.2 F L 04/12/18 13:36 Pulse Rate 55 L 04/12/18 13:36 Respiratory Rate 16 04/12/18 13:36 Blood Pressure 108/65 04/12/18 13:36 O2 Sat by Pulse Oximetry (%) Laboratory Last Values WBC 4.6 K/mm3 (4.0-10.0) 04/12/18 07:00 RBC 4.76 M/mm3 (4.00-5.60) 04/12/18 07:00 Hgb 13.5 GM/dL (11.7-16.9) 04/12/18 07:00 Hct 39.1 % (35.4-49) 04/12/18 07:00 MCV 82.2 fl (80-96) 04/12/18 07:00 MCH 28.4 pg (25.7-33.7) 04/12/18 07:00 MCHC 34.6 g/dl (32.0-35.9) 04/12/18 07:00 RDW 15.0 % (11.9-15.9) 04/12/18 07:00 Plt Count 248 K/MM3 (134-434) 04/12/18 07:00 MPV 8.6 fl (7.5-11.1) 04/12/18 07:00 Sodium 141 mmol/L (136-145) 04/12/18 07:00 Potassium 3.6 mmol/L (3.5-5.1) 04/12/18 07:00 Chloride 107 mmol/L (98-107) 04/12/18 07:00 Carbon Dioxide 28 mmol/L (21-32) 04/12/18 07:00 Anion Gap 6 MMOL/L (8-16) L 04/12/18 07:00 BUN 16 mg/dL (7-18) 04/12/18 07:00 Creatinine 1.3 mg/dL (0.55-1.3) 04/12/18 07:00 Creat Clearance w eGFR 57.97 (>60) 04/12/18 07:00 Random Glucose 97 mg/dL (74-106) 04/12/18 07:00 Calcium 8.4 mg/dL (8.5-10.1) L 04/12/18 07:00 Total Bilirubin 0.4 mg/dL (0.2-1) 04/12/18 07:00 AST 18 U/L (15-37) 04/12/18 07:00 ALT 18 U/L (13-61) 04/12/18 07:00 Alkaline Phosphatase 62 U/L (45-117) 04/12/18 07:00 Total Protein 5.3 g/dl (6.4-8.2) L 04/12/18 07:00 Albumin 2.9 g/dl (3.4-5.0) L 04/12/18 07:00 Urine Color [place] 04/11/18 22:50 Urine Appearance Clear 04/11/18 22:50 Urine pH 6.0 (5.0-8.0) 04/11/18 22:50 Ur Specific [place] 1.026 (1.010-1.035) 04/11/18 22:50 Urine Protein 1+ (NEGATIVE) H 04/11/18 22:50 Urine Glucose (UA) Negative (NEGATIVE) 04/11/18 22:50 Urine Ketones Negative (NEGATIVE) 04/11/18 22:50 Urine Blood Negative (NEGATIVE) 04/11/18 22:50 Urine Nitrite Negative (NEGATIVE) 04/11/18 22:50 Urine Bilirubin Negative (<2.0 mg/dL) 04/11/18 22:50 Urine Urobilinogen 4.0 e.u/dl mg/dL (0.2-1.0) 04/11/18 22:50 Ur Leukocyte Esterase Negative (NEGATIVE) 04/11/18 22:50 Urine WBC (Auto) 4 /hpf (3-5) 04/11/18 22:50 Urine RBC (Auto) 1 /hpf (0-3) 04/11/18 22:50 Hyaline Casts 3 /lpf 04/11/18 22:50 Urine Mucus Moderate 02/04/19 22:50 HIV 1&2 Antibody Screen Negative 04/12/18 07:00 HIV P24 Antigen Negative 04/12/18 07:00 lab noted Assessment: 04/12/18 15:05 withdrawal sx Plan: continue detox
[2018-04-12] MEDS: THIAMINE HCL 100 MG TABLET (FP) PO SCH (22:24)
[2018-04-12] MEDS: MELATONIN 5 MG TABLETS PO PRN (22:24)
[2018-04-13] MEDS: chlordiazePOXIDE HCL 25 MG CAPSULE PO SCH ×3 (05:17→17:05)
[2018-04-13] MEDS: NICOTINE 21 MG/24 HOURS TOPICAL PATCH TD SCH (10:26)
[2018-04-13] MEDS: PRENATAL VITAMINS W/ FOLIC ACID TABLET (FP) PO SCH (10:26)
--- NOTE | 2018-04-13 11:05 | PN ---
S CIWA - CIWA Score Nausea/Vomitin-Mild Nausea/No Vomiting Muscle Tremors: 3 Anxiety: 2 Agitation: 2 Paroxysmal Sweats: 1-Minimal Palms Moist Orientation: 1-Uncertain about Date Tacttile Disturbances: 0-None Auditory Disturbances: 0-None Visual Disturbances: 0-None Headache: 2-Mild CIWA-Ar Total Score: 12 S Progress Note (SOAP) Subjective: tremor sweating restlessness anxiety Objective: 04/13/18 11:04 Vital Signs Temperature 96.9 F L 04/13/18 09:11 Pulse Rate 56 L 04/13/18 09:11 Respiratory Rate 18 04/13/18 09:11 Blood Pressure 116/81 04/13/18 09:11 O2 Sat by Pulse Oximetry (%) Laboratory Last Values WBC 4.6 K/mm3 (4.0-10.0) 04/12/18 07:00 RBC 4.76 M/mm3 (4.00-5.60) 04/12/18 07:00 Hgb 13.5 GM/dL (11.7-16.9) 04/12/18 07:00 Hct 39.1 % (35.4-49) 04/12/18 07:00 MCV 82.2 fl (80-96) 04/12/18 07:00 MCH 28.4 pg (25.7-33.7) 04/12/18 07:00 MCHC 34.6 g/dl (32.0-35.9) 04/12/18 07:00 RDW 15.0 % (11.9-15.9) 04/12/18 07:00 Plt Count 248 K/MM3 (134-434) 04/12/18 07:00 MPV 8.6 fl (7.5-11.1) 04/12/18 07:00 Sodium 141 mmol/L (136-145) 04/12/18 07:00 Potassium 3.6 mmol/L (3.5-5.1) 04/12/18 07:00 Chloride 107 mmol/L (98-107) 04/12/18 07:00 Carbon Dioxide 28 mmol/L (21-32) 04/12/18 07:00 Anion Gap 6 MMOL/L (8-16) L 04/12/18 07:00 BUN 16 mg/dL (7-18) 04/12/18 07:00 Creatinine 1.3 mg/dL (0.55-1.3) 04/12/18 07:00 Creat Clearance w eGFR 57.97 (>60) 04/12/18 07:00 Random Glucose 97 mg/dL (74-106) 04/12/18 07:00 Calcium 8.4 mg/dL (8.5-10.1) L 04/12/18 07:00 Total Bilirubin 0.4 mg/dL (0.2-1) 04/12/18 07:00 AST 18 U/L (15-37) 04/12/18 07:00 ALT 18 U/L (13-61) 04/12/18 07:00 Alkaline Phosphatase 62 U/L (45-117) 04/12/18 07:00 Total Protein 5.3 g/dl (6.4-8.2) L 04/12/18 07:00 Albumin 2.9 g/dl (3.4-5.0) L 04/12/18 07:00 Urine Color Hailey 04/11/18 22:50 Urine Appearance Clear 04/11/18 22:50 Urine pH 6.0 (5.0-8.0) 04/11/18 22:50 Ur Specific [place] 1.026 (1.010-1.035) 04/11/18 22:50 Urine Protein 1+ (NEGATIVE) H 04/11/18 22:50 Urine Glucose (UA) Negative (NEGATIVE) 04/11/18 22:50 Urine Ketones Negative (NEGATIVE) 04/11/18 22:50 Urine Blood Negative (NEGATIVE) 04/11/18 22:50 Urine Nitrite Negative (NEGATIVE) 04/11/18 22:50 Urine Bilirubin Negative (<2.0 mg/dL) 04/11/18 22:50 Urine Urobilinogen 4.0 e.u/dl mg/dL (0.2-1.0) 04/11/18 22:50 Ur Leukocyte Esterase Negative (NEGATIVE) 04/11/18 22:50 Urine WBC (Auto) 4 /hpf (3-5) 04/11/18 22:50 Urine RBC (Auto) 1 /hpf (0-3) 04/11/18 22:50 Hyaline Casts 3 /lpf 04/11/18 22:50 Urine Mucus Moderate 04/11/18 22:50 HIV 1&2 Antibody Screen Negative 04/12/18 07:00 HIV P24 Antigen Negative 04/12/18 07:00 lab noted Assessment: 04/13/18 11:04 withdrawal sx Plan: continue detox
[2018-04-13] MEDS: chlordiazePOXIDE 5 MG CAPSULE PO SCH (22:06)
[2018-04-13] MEDS: THIAMINE HCL 100 MG TABLET (FP) PO SCH (22:06)
[2018-04-13] MEDS: MELATONIN 5 MG TABLETS PO PRN (22:07)
[2018-04-13] MEDS ORDERED: COLLOIDAL OATMEAL 1 BAR EACH TP PRN (23:21)
[2018-04-14] MEDS: chlordiazePOXIDE 5 MG CAPSULE PO SCH ×2 (05:35→10:28)
[2018-04-14 09:19] VITALS: BP 113/76; PULSE 53; TEMP 96.2
[2018-04-14] MEDS: PRENATAL VITAMINS W/ FOLIC ACID TABLET (FP) PO SCH (10:28)
[2018-04-14] MEDS: NICOTINE 21 MG/24 HOURS TOPICAL PATCH TD SCH (10:30)
--- NOTE | 2018-04-14 10:37 | DS ---
[facility] Detox Discharge Summary Admission Date: 04/11/18 Discharge Date: 04/14/18 - History Present History: Alcohol Dependence Additional Comments: 53 years old male admitted on 04/11/18 for alcohol withdrawal stabilization feeling better today able to manage mild alcohol withdrawal sx today preferred to begin alcohol rehab today aftercare [facility] - Physical Exam Results Vital Signs: Vital Signs Temperature 96.2 F L 04/14/18 09:18 Pulse Rate 53 L 04/14/18 09:18 Respiratory Rate 18 04/14/18 09:18 Blood Pressure 113/76 04/14/18 09:18 O2 Sat by Pulse Oximetry (%) Pertinent Admission Physical Exam Findings: alcohol withdrawal sx Laboratory Last Values WBC 4.6 K/mm3 (4.0-10.0) 04/12/18 07:00 RBC 4.76 M/mm3 (4.00-5.60) 04/12/18 07:00 Hgb 13.5 GM/dL (11.7-16.9) 04/12/18 07:00 Hct 39.1 % (35.4-49) 04/12/18 07:00 MCV 82.2 fl (80-96) 04/12/18 07:00 MCH 28.4 pg (25.7-33.7) 04/12/18 07:00 MCHC 34.6 g/dl (32.0-35.9) 04/12/18 07:00 RDW 15.0 % (11.9-15.9) 04/12/18 07:00 Plt Count 248 K/MM3 (134-434) 04/12/18 07:00 MPV 8.6 fl (7.5-11.1) 04/12/18 07:00 Sodium 141 mmol/L (136-145) 04/12/18 07:00 Potassium 3.6 mmol/L (3.5-5.1) 04/12/18 07:00 Chloride 107 mmol/L (98-107) 04/12/18 07:00 Carbon Dioxide 28 mmol/L (21-32) 04/12/18 07:00 Anion Gap 6 MMOL/L (8-16) L 04/12/18 07:00 BUN 16 mg/dL (7-18) 04/12/18 07:00 Creatinine 1.3 mg/dL (0.55-1.3) 04/12/18 07:00 Creat Clearance w eGFR 57.97 (>60) 04/12/18 07:00 Random Glucose 97 mg/dL (74-106) 04/12/18 07:00 Calcium 8.4 mg/dL (8.5-10.1) L 04/12/18 07:00 Total Bilirubin 0.4 mg/dL (0.2-1) 04/12/18 07:00 AST 18 U/L (15-37) 04/12/18 07:00 ALT 18 U/L (13-61) 04/12/18 07:00 Alkaline Phosphatase 62 U/L (45-117) 04/12/18 07:00 Total Protein 5.3 g/dl (6.4-8.2) L 04/12/18 07:00 Albumin 2.9 g/dl (3.4-5.0) L 04/12/18 07:00 Urine Color Hailey 04/11/18 22:50 Urine Appearance Clear 04/11/18 22:50 Urine pH 6.0 (5.0-8.0) 04/11/18 22:50 Ur Specific [place] 1.026 (1.010-1.035) 04/11/18 22:50 Urine Protein 1+ (NEGATIVE) H 04/11/18 22:50 Urine Glucose (UA) Negative (NEGATIVE) 04/11/18 22:50 Urine Ketones Negative (NEGATIVE) 04/11/18 22:50 Urine Blood Negative (NEGATIVE) 04/11/18 22:50 Urine Nitrite Negative (NEGATIVE) 04/11/18 22:50 Urine Bilirubin Negative (<2.0 mg/dL) 04/11/18 22:50 Urine Urobilinogen 4.0 e.u/dl mg/dL (0.2-1.0) 04/11/18 22:50 Ur Leukocyte Esterase Negative (NEGATIVE) 04/11/18 22:50 Urine WBC (Auto) 4 /hpf (3-5) 04/11/18 22:50 Urine RBC (Auto) 1 /hpf (0-3) 04/11/18 22:50 Hyaline Casts 3 /lpf 04/11/18 22:50 Urine Mucus Moderate 04/11/18 22:50 RPR Titer Nonreactive (NONREACTIVE) 04/12/18 07:00 HIV 1&2 Antibody Screen Negative 04/12/18 07:00 HIV P24 Antigen Negative 04/12/18 07:00 lab noted - Treatment Hospital Course: Detox Protocol Followed, Detoxed Safely, Responded well, Discharged Condition Good, Rehab Referral Accepted Patient has Accepted a Rehab Referral to: [facility] - Medication Discharge Medications: Ambulatory Orders NK [No Known Home Medication] 04/11/14 - Diagnosis (1) Alcohol dependence with uncomplicated withdrawal Current Visit: Yes Status: Acute (2) Drug-induced mood disorder Current Visit: Yes Status: Suspected (3) Nicotine dependence Current Visit: Yes Status: Acute Qualifiers: Nicotine product type: cigarettes Substance use status: in withdrawal Qualified Code(s): F17.213 - Nicotine dependence, cigarettes, with withdrawal - AMA Did Patient Leave Against Medical Advice: No
[2018-04-14] MEDS ORDERED: chlordiazePOXIDE HCL 10 MG CAPSULE PO SCH (23:00)
== END 2018-04-14 12:15 | disposition home or self-care (01) | DRG 774 ==
LOC: YASAS 14:30 → UNDOADMIN 18:41 → Y3N 18:41
PROVIDERS: ADMIT Surgery; ATTEND Surgery
PROC: HZ2ZZZZ Detoxification Services for Substance Abuse Treatment (ICD-10-PCS; principal; 2018-04-11)
DX: F10.230 Alcohol dependence with withdrawal, uncomplicated (principal); F14.20 Cocaine dependence, uncomplicated; F12.20 Cannabis dependence, uncomplicated; F17.213 Nicotine dependence, cigarettes, with withdrawal; F19.24 Other psychoactive substance dependence with psychoactive substance-induced mood disorder; Z59.0 Homelessness
CPT/HCPCS: 36415; 80053; 81003; 81015; 85027; 86593; 87389

== ENCOUNTER 2018-05-17 15:14 | Inpatient (IN) | payer OTHER ==
[2018-05-17 17:53] VITALS: BMI 21.6
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
[2018-05-17] MEDS ORDERED: MAG HYDROX/AL HYDROX/SIMETH 30 ML UNIT-DOSE CUP PO PRN (18:29)
[2018-05-17] MEDS ORDERED: P-EPHED 60MG/TRIPROLIDI 2.5MG TABLET PO PRN (18:29)
[2018-05-17] MEDS ORDERED: ACETAMINOPHEN 325 MG TABLET (FP) PO PRN (18:29)
[2018-05-17] MEDS ORDERED: MAGNESIUM CITRATE 300 ML BOTTLE PO PRN (18:29)
[2018-05-17] MEDS ORDERED: IBUPROFEN 400 MG TABLET (FP) PO PRN (18:29)
[2018-05-17] MEDS ORDERED: NICOTINE POLACRILEX 2 MG GUM BC PRN (18:29)
[2018-05-17] MEDS ORDERED: MENTHOL/PHENOL 1 EACH UD MM PRN (18:29)
[2018-05-17] MEDS ORDERED: guaiFENesin 200 MG/10 ML 10 ML UNIT-DOSE CUPS PO PRN (18:29)
[2018-05-17] MEDS ORDERED: MAGNESIUM HYDROX 2400MG/30ML ORAL SUSPENSION 30 ML CUP PO PRN (18:29)
[2018-05-17] MEDS: THIAMINE HCL 100 MG TABLET (FP) PO SCH (21:36)
[2018-05-17] MEDS: MELATONIN 5 MG TABLETS PO PRN (21:37)
[2018-05-18 02:00] LABS: URINE APPEARANCE CLEAR; URINE BILIRUBIN NEGATIVE (<2.0 mg/dL); URINE COLOR YELLOW; URINE GLUCOSE (UA) NEGATIVE (NEGATIVE); URINE KETONE NEGATIVE (NEGATIVE); URINE LEUK ESTERASE NEGATIVE (NEGATIVE); URINE NITRITE NEGATIVE (NEGATIVE); URINE PROTEIN NEGATIVE (NEGATIVE); URINE UROBILINOGEN NEGATIVE mg/dL (0.2-1.0)
[2018-05-18] MEDS: PRENATAL VITAMINS W/ FOLIC ACID TABLET (FP) PO SCH (10:18)
[2018-05-18 11:02] LABS: ALBUMIN 3.2 g/dl (3.4-5.0); ALK PHOS 77 U/L (45-117); ANION GAP 5 MMOL/L (8-16); BILIRUBIN,TOTAL 0.9 mg/dL (0.2-1); BLOOD UREA NITROGEN 18 mg/dL (7-18); CALCIUM 8.2 mg/dL (8.5-10.1); CHLORIDE 109 mmol/L (98-107); CO2 26 mmol/L (21-32); CREATININE 1.1 mg/dL (0.55-1.3); GLUCOSE,RANDOM 100 mg/dL (74-106); POTASSIUM 3.9 mmol/L (3.5-5.1); SGOT/AST 24 U/L (15-37); SGPT/ALT 29 U/L (13-61); SODIUM 140 mmol/L (136-145); TOT PROT 6.1 g/dl (6.4-8.2)
[2018-05-18 11:04] LABS: HEMOGLOBIN 14.3 GM/dL (11.7-16.9); MCH 28.7 pg (25.7-33.7); MCHC 34.9 g/dl (32.0-35.9); MEAN CELL VOLUME 82.2 fl (80-96); MEAN PLT VOLUME 9.2 fl (7.5-11.1); PLATELET COUNT 209 K/MM3 (134-434); RBC 4.99 M/mm3 (4.00-5.60); RDW 15.5 % (11.9-15.9); WHITE BLOOD COUNT 5.1 K/mm3 (4.0-10.0)
[2018-05-18] MEDS: THIAMINE HCL 100 MG TABLET (FP) PO SCH (21:23)
[2018-05-18] MEDS: MELATONIN 5 MG TABLETS PO PRN (21:23)
[2018-05-19] MEDS: PRENATAL VITAMINS W/ FOLIC ACID TABLET (FP) PO SCH (09:55)
[2018-05-19] MEDS: THIAMINE HCL 100 MG TABLET (FP) PO SCH (21:19)
[2018-05-20] MEDS: PRENATAL VITAMINS W/ FOLIC ACID TABLET (FP) PO SCH (10:03)
[2018-05-20] MEDS: THIAMINE HCL 100 MG TABLET (FP) PO SCH (21:34)
[2018-05-20] MEDS: MELATONIN 5 MG TABLETS PO PRN (21:34)
[2018-05-21] MEDS: PRENATAL VITAMINS W/ FOLIC ACID TABLET (FP) PO SCH (09:59)
[2018-05-21] MEDS: THIAMINE HCL 100 MG TABLET (FP) PO SCH (21:23)
[2018-05-21] MEDS: MELATONIN 5 MG TABLETS PO PRN (21:24)
[2018-05-22] MEDS: PRENATAL VITAMINS W/ FOLIC ACID TABLET (FP) PO SCH (10:28)
[2018-05-22] MEDS: THIAMINE HCL 100 MG TABLET (FP) PO SCH (21:16)
[2018-05-23] MEDS: PRENATAL VITAMINS W/ FOLIC ACID TABLET (FP) PO SCH (10:13)
[2018-05-23] MEDS: THIAMINE HCL 100 MG TABLET (FP) PO SCH (21:13)
[2018-05-24] MEDS: PRENATAL VITAMINS W/ FOLIC ACID TABLET (FP) PO SCH (10:24)
[2018-05-24] MEDS: THIAMINE HCL 100 MG TABLET (FP) PO SCH (21:29)
[2018-05-25] MEDS: PRENATAL VITAMINS W/ FOLIC ACID TABLET (FP) PO SCH (10:09)
[2018-05-25] MEDS ORDERED: MINERAL OIL/PETROLAT/WATER TOPICAL CREAM 113 GM JAR TP SCH (10:30)
[2018-05-25] MEDS: THIAMINE HCL 100 MG TABLET (FP) PO SCH (21:21)
[2018-05-26] MEDS: PRENATAL VITAMINS W/ FOLIC ACID TABLET (FP) PO SCH (10:06)
[2018-05-26] MEDS: THIAMINE HCL 100 MG TABLET (FP) PO SCH (21:19)
[2018-05-27] MEDS: PRENATAL VITAMINS W/ FOLIC ACID TABLET (FP) PO SCH (09:57)
[2018-05-27] MEDS: THIAMINE HCL 100 MG TABLET (FP) PO SCH (21:24)
[2018-05-28] MEDS: PRENATAL VITAMINS W/ FOLIC ACID TABLET (FP) PO SCH (10:00)
[2018-05-28] MEDS: THIAMINE HCL 100 MG TABLET (FP) PO SCH (21:20)
[2018-05-29] MEDS: PRENATAL VITAMINS W/ FOLIC ACID TABLET (FP) PO SCH (09:53)
[2018-05-29] MEDS: THIAMINE HCL 100 MG TABLET (FP) PO SCH (21:21)
[2018-05-30] MEDS: PRENATAL VITAMINS W/ FOLIC ACID TABLET (FP) PO SCH (10:14)
[2018-05-30] MEDS: THIAMINE HCL 100 MG TABLET (FP) PO SCH (21:32)
[2018-05-31] MEDS: PRENATAL VITAMINS W/ FOLIC ACID TABLET (FP) PO SCH (10:02)
[2018-05-31] MEDS: THIAMINE HCL 100 MG TABLET (FP) PO SCH (21:16)
[2018-06-01] MEDS: PRENATAL VITAMINS W/ FOLIC ACID TABLET (FP) PO SCH (10:15)
[2018-06-01] MEDS: THIAMINE HCL 100 MG TABLET (FP) PO SCH (21:17)
[2018-06-02] MEDS: PRENATAL VITAMINS W/ FOLIC ACID TABLET (FP) PO SCH (10:40)
[2018-06-02] MEDS: THIAMINE HCL 100 MG TABLET (FP) PO SCH (21:16)
[2018-06-03] MEDS: PRENATAL VITAMINS W/ FOLIC ACID TABLET (FP) PO SCH (10:19)
[2018-06-03] MEDS: THIAMINE HCL 100 MG TABLET (FP) PO SCH (21:17)
[2018-06-04] MEDS: PRENATAL VITAMINS W/ FOLIC ACID TABLET (FP) PO SCH (09:35)
[2018-06-04] MEDS: THIAMINE HCL 100 MG TABLET (FP) PO SCH (22:21)
[2018-06-05] MEDS: PRENATAL VITAMINS W/ FOLIC ACID TABLET (FP) PO SCH (09:45)
[2018-06-05] MEDS: THIAMINE HCL 100 MG TABLET (FP) PO SCH (21:21)
[2018-06-05] MEDS: MELATONIN 5 MG TABLETS PO PRN (21:21)
[2018-06-06] MEDS: PRENATAL VITAMINS W/ FOLIC ACID TABLET (FP) PO SCH (10:17)
[2018-06-06] MEDS: THIAMINE HCL 100 MG TABLET (FP) PO SCH (21:17)
[2018-06-07] MEDS: PRENATAL VITAMINS W/ FOLIC ACID TABLET (FP) PO SCH (10:16)
[2018-06-07] MEDS: THIAMINE HCL 100 MG TABLET (FP) PO SCH (21:25)
[2018-06-08] MEDS: PRENATAL VITAMINS W/ FOLIC ACID TABLET (FP) PO SCH (10:09)
[2018-06-08] MEDS: THIAMINE HCL 100 MG TABLET (FP) PO SCH (21:16)
[2018-06-09] MEDS: PRENATAL VITAMINS W/ FOLIC ACID TABLET (FP) PO SCH (10:01)
[2018-06-09] MEDS: THIAMINE HCL 100 MG TABLET (FP) PO SCH (21:25)
[2018-06-10 06:55] VITALS: BP 130/97; PULSE 57; TEMP 97.9
[2018-06-10] MEDS: PRENATAL VITAMINS W/ FOLIC ACID TABLET (FP) PO SCH (09:53)
--- NOTE | 2018-06-10 12:29 | PN ---
[facility] Progress Note Note: REHAB DISCHARGE NOTE: PATIENT DISCHARGE FROM REHAB TODAY. AFTERCARE SCHEDULED FOR 06/14/18 11AM AT [facility]. PATIENT LEFT UNIT PRIOR TO EVALUATION BY MORNING NANNY. DISCHARGE INSTRUCTIONS PROVIDED BY NURSING STAFF. Vital Signs Temperature 97.9 F 06/10/18 06:54 Pulse Rate 57 L 06/10/18 06:54 Respiratory Rate 16 06/10/18 06:54 Blood Pressure 130/97 06/10/18 06:54 O2 Sat by Pulse Oximetry (%) Laboratory Tests 05/17/18 05/18/18 05/18/18 23:30 08:00 08:00 WBC 5.1 RBC 4.99 Hgb 14.3 Hct 41.0 MCV 82.2 MCH 28.7 MCHC 34.9 RDW 15.5 Plt Count 209 MPV 9.2 Sodium 140 Potassium 3.9 Chloride 109 H Carbon Dioxide 26 Anion Gap 5 L BUN 18 Creatinine 1.1 Creat Clearance w eGFR > 60 Random Glucose 100 Calcium 8.2 L Total Bilirubin 0.9 AST 24 ALT 29 Alkaline Phosphatase 77 Total Protein 6.1 L Albumin 3.2 L Urine Color Yellow Urine Appearance Clear Urine pH 7.0 Ur Specific [place] 1.015 Urine Protein Negative Urine Glucose (UA) Negative Urine Ketones Negative Urine Blood Negative Urine Nitrite Negative Urine Bilirubin Negative Urine Urobilinogen Negative Ur Leukocyte Esterase Negative RPR Titer HIV 1&2 Antibody Screen HIV P24 Antigen 05/18/18 05/19/18 08:00 06:00 WBC RBC Hgb Hct MCV MCH MCHC RDW Plt Count MPV Sodium Potassium Chloride Carbon Dioxide Anion Gap BUN Creatinine Creat Clearance w eGFR Random Glucose Calcium Total Bilirubin AST ALT Alkaline Phosphatase Total Protein Albumin Urine Color Urine Appearance Urine pH Ur Specific [place] Urine Protein Urine Glucose (UA) Urine Ketones Urine Blood Urine Nitrite Urine Bilirubin Urine Urobilinogen Ur Leukocyte Esterase RPR Titer Nonreactive HIV 1&2 Antibody Screen Negative HIV P24 Antigen Negative Home Medications Medication Instructions Recorded NK [No Known Home Medication] 04/11/14
== END 2018-06-10 10:45 | disposition home or self-care (01) | DRG 772 ==
LOC: YASAS 15:14 → Y5N 18:40 → Y3E 19:47 → Y5N 19:48
PROVIDERS: ADMIT Surgery; ATTEND Neuromusculoskeletal Medicine & OMM
PROC: HZ42ZZZ Group Counseling for Substance Abuse Treatment, Cognitive-Behavioral (ICD-10-PCS; principal; 2018-05-17)
DX: F10.20 Alcohol dependence, uncomplicated (principal); F14.20 Cocaine dependence, uncomplicated; F12.20 Cannabis dependence, uncomplicated; F17.210 Nicotine dependence, cigarettes, uncomplicated; Z59.0 Homelessness
CPT/HCPCS: 36415; 80053; 81003; 85027; 86593; 87389

== ENCOUNTER 2020-09-06 11:28 | Inpatient (IN) | payer OTHER ==
[2020-09-06 13:14] VITALS: BMI 20.6
[2020-09-06] MEDS ORDERED: MAG HYDROX/AL HYDROX/SIMETH 30 ML UNIT-DOSE CUP PO PRN (14:20)
[2020-09-06] MEDS ORDERED: IBUPROFEN 400 MG TABLET (FP) PO PRN (14:20)
[2020-09-06] MEDS ORDERED: BISMUTH SUBSALICYLATE 524 MG/30 ML PO PRN (14:20)
[2020-09-06] MEDS ORDERED: METHOCARBAMOL 500 MG TABLET PO PRN (14:20)
[2020-09-06] MEDS ORDERED: MAGNESIUM HYDROX 2400MG/30ML ORAL SUSPENSION 30 ML CUP PO PRN (14:20)
[2020-09-06] MEDS ORDERED: ONDANSETRON *ODT* 4 MG TABLET SL PRN (14:20)
[2020-09-06] MEDS ORDERED: MAGNESIUM CITRATE 300 ML BOTTLE PO PRN (14:20)
[2020-09-06] MEDS ORDERED: ACETAMINOPHEN 325 MG TABLET (FP) PO PRN ×2 (14:20)
[2020-09-06] MEDS ORDERED: MENTHOL/PHENOL 1 EACH UD MM PRN (14:20)
[2020-09-06] MEDS ORDERED: NICOTINE POLACRILEX 2 MG GUM BUC PRN (14:20)
[2020-09-06] MEDS: NICOTINE 21 MG/24 HOURS TOPICAL PATCH TD SCH (18:22)
[2020-09-06] MEDS: hydrOXYzine PAMOATE 25 MG CAPSULE (FP) PO SCH ×2 (18:22→22:33)
[2020-09-06] MEDS: THIAMINE HCL 100 MG TABLET (FP) PO SCH (22:33)
[2020-09-06] MEDS: MELATONIN 5 MG TABLETS PO SCH (22:33)
[2020-09-07] MEDS: hydrOXYzine PAMOATE 25 MG CAPSULE (FP) PO SCH ×5 (07:13→22:53)
[2020-09-07 09:59] LABS: HEMATOCRIT 35.5 % (35.4-49); MCH 27.3 pg (25.7-33.7); MCHC 33.9 g/dl (32.0-35.9); MEAN CELL VOLUME 80.5 fl (80-96); MEAN PLT VOLUME 9.1 fl (7.5-11.1); PLATELET COUNT 222 10^3/uL (134-434); RBC 4.41 M/mm3 (4.00-5.60); RDW 15.2 % (11.9-15.9); WHITE BLOOD COUNT 4.4 K/mm3 (4.0-10.0)
[2020-09-07 10:12] LABS: ALBUMIN 3.3 g/dl (3.4-5.0); BLOOD UREA NITROGEN 25.8 mg/dL (7-18); CALCIUM 8.5 mg/dL (8.5-10.1)
[2020-09-07 10:15] LABS: CREATININE 1.5 mg/dL (0.55-1.3)
[2020-09-07 10:16] LABS: BILIRUBIN,TOTAL 1.4 mg/dL (0.2-1); TOT PROT 5.8 g/dl (6.4-8.2)
[2020-09-07] MEDS: PRENATAL VITAMINS W/ FOLIC ACID TABLET (FP) PO SCH (10:18)
[2020-09-07] MEDS: NICOTINE 21 MG/24 HOURS TOPICAL PATCH TD SCH (10:19)
[2020-09-07 11:09] LABS: HIV INTERPRETATION NEGATIVE (NEGATIVE)
[2020-09-07] MEDS: THIAMINE HCL 100 MG TABLET (FP) PO SCH (22:53)
[2020-09-07] MEDS: MELATONIN 5 MG TABLETS PO SCH (22:53)
[2020-09-08] MEDS: hydrOXYzine PAMOATE 25 MG CAPSULE (FP) PO SCH ×4 (08:05→18:05)
[2020-09-08] MEDS: PRENATAL VITAMINS W/ FOLIC ACID TABLET (FP) PO SCH (10:15)
[2020-09-08] MEDS: NICOTINE 21 MG/24 HOURS TOPICAL PATCH TD SCH (10:15)
[2020-09-08 17:44] VITALS: BP 126/90; PULSE 59; TEMP 97.2
== END 2020-09-08 20:25 | disposition other institution (70) | DRG 773 ==
LOC: YASAS 11:28 → Y3N 15:02
PROVIDERS: ADMIT Allergy & Immunology; ATTEND Allergy & Immunology
PROC: HZ2ZZZZ Detoxification Services for Substance Abuse Treatment (ICD-10-PCS; principal; 2020-09-06)
DX: F10.230 Alcohol dependence with withdrawal, uncomplicated (principal); F11.10 Opioid abuse, uncomplicated; F14.20 Cocaine dependence, uncomplicated; F12.20 Cannabis dependence, uncomplicated; F17.213 Nicotine dependence, cigarettes, with withdrawal; F19.24 Other psychoactive substance dependence with psychoactive substance-induced mood disorder; F31.89 Other bipolar disorder; R63.4 Abnormal weight loss; Z90.5 Acquired absence of kidney; Z59.0 Homelessness
CPT/HCPCS: 36415; 80053; 85027; 86780; 87389; 93005; 93010; C9803; U0003; U0005

== ENCOUNTER 2020-09-08 21:02 | Inpatient (IN) | payer OTHER ==
[~2020-09-08 21:02] MED LIST: ACETAMINOPHEN 325 MG TABLET (FP) PO PRN; IBUPROFEN 400 MG TABLET (FP) PO PRN; LOPERAMIDE HCL 2 MG CAPSULE PO PRN; MAG HYDROX/AL HYDROX/SIMETH 30 ML UNIT-DOSE CUP PO PRN; MAGNESIUM CITRATE 300 ML BOTTLE PO PRN; MAGNESIUM HYDROX 2400MG/30ML ORAL SUSPENSION 30 ML CUP PO PRN; NICOTINE POLACRILEX 2 MG GUM BUC PRN; P-EPHED 60MG/TRIPROLIDI 2.5MG TABLET PO PRN; guaiFENesin 200 MG/10 ML 10 ML UNIT-DOSE CUPS PO PRN
[2020-09-08] MEDS: hydrOXYzine PAMOATE 25 MG CAPSULE (FP) PO SCH ×3 (21:58→22:17)
[2020-09-08] MEDS: MELATONIN 5 MG TABLETS PO SCH (21:58)
[2020-09-08] MEDS: THIAMINE HCL 100 MG TABLET (FP) PO SCH (21:59)
[2020-09-09] MEDS: hydrOXYzine PAMOATE 25 MG CAPSULE (FP) PO SCH ×5 (06:33→21:20)
[2020-09-09] MEDS: PRENATAL VITAMINS W/ FOLIC ACID TABLET (FP) PO SCH (09:37)
[2020-09-09] MEDS: NICOTINE 21 MG/24 HOURS TOPICAL PATCH TD SCH (09:38)
[2020-09-09] MEDS: MELATONIN 5 MG TABLETS PO SCH (21:19)
[2020-09-09] MEDS: THIAMINE HCL 100 MG TABLET (FP) PO SCH (21:19)
[2020-09-10] MEDS: hydrOXYzine PAMOATE 25 MG CAPSULE (FP) PO SCH ×2 (06:14→09:58)
[2020-09-10] MEDS: PRENATAL VITAMINS W/ FOLIC ACID TABLET (FP) PO SCH (09:58)
[2020-09-10] MEDS: NICOTINE 21 MG/24 HOURS TOPICAL PATCH TD SCH (09:59)
[2020-09-10 14:24] LABS: ALBUMIN 3.3 g/dl (3.4-5.0); BLOOD UREA NITROGEN 26.8 mg/dL (7-18); CALCIUM 8.8 mg/dL (8.5-10.1)
[2020-09-10 14:27] LABS: BILIRUBIN,DIRECT 0.2 mg/dL (0.0-0.2); CREATININE 1.5 mg/dL (0.55-1.3); PHOSPHOROUS 2.1 mg/dL (2.5-4.9)
[2020-09-10 14:28] LABS: BILIRUBIN,TOTAL 0.5 mg/dL (0.2-1); TOT PROT 6.1 g/dl (6.4-8.2)
[2020-09-10] MEDS: MELATONIN 5 MG TABLETS PO SCH (21:24)
[2020-09-10] MEDS: hydrOXYzine PAMOATE 25 MG CAPSULE (FP) PO PRN (21:24)
[2020-09-10] MEDS: THIAMINE HCL 100 MG TABLET (FP) PO SCH (21:24)
[2020-09-11] MEDS: PRENATAL VITAMINS W/ FOLIC ACID TABLET (FP) PO SCH (09:41)
[2020-09-11] MEDS: NICOTINE 21 MG/24 HOURS TOPICAL PATCH TD SCH (09:41)
[2020-09-11] MEDS: THIAMINE HCL 100 MG TABLET (FP) PO SCH (21:02)
[2020-09-11] MEDS: hydrOXYzine PAMOATE 25 MG CAPSULE (FP) PO PRN (21:02)
[2020-09-11] MEDS: MELATONIN 5 MG TABLETS PO SCH (21:03)
[2020-09-12] MEDS: PRENATAL VITAMINS W/ FOLIC ACID TABLET (FP) PO SCH (09:30)
[2020-09-12] MEDS: NICOTINE 21 MG/24 HOURS TOPICAL PATCH TD SCH (09:30)
[2020-09-12] MEDS: THIAMINE HCL 100 MG TABLET (FP) PO SCH (21:26)
[2020-09-12] MEDS: MELATONIN 5 MG TABLETS PO SCH (21:26)
[2020-09-13] MEDS: hydrOXYzine PAMOATE 25 MG CAPSULE (FP) PO PRN (02:32)
[2020-09-13] MEDS: NICOTINE 21 MG/24 HOURS TOPICAL PATCH TD SCH (09:41)
[2020-09-13] MEDS: PRENATAL VITAMINS W/ FOLIC ACID TABLET (FP) PO SCH (09:41)
[2020-09-13] MEDS ORDERED: COVID-19 VAC,AD26(JANSSEN)/PF 0.5 ML IM ONE (11:00)
[2020-09-13] MEDS: MELATONIN 5 MG TABLETS PO SCH (21:11)
[2020-09-13] MEDS: THIAMINE HCL 100 MG TABLET (FP) PO SCH (21:11)
[2020-09-14] MEDS: NICOTINE 21 MG/24 HOURS TOPICAL PATCH TD SCH (09:42)
[2020-09-14] MEDS: PRENATAL VITAMINS W/ FOLIC ACID TABLET (FP) PO SCH (09:42)
[2020-09-14] MEDS: THIAMINE HCL 100 MG TABLET (FP) PO SCH (21:05)
[2020-09-14] MEDS: MELATONIN 5 MG TABLETS PO SCH (21:06)
[2020-09-14] MEDS: hydrOXYzine PAMOATE 25 MG CAPSULE (FP) PO PRN (21:06)
[2020-09-15] MEDS: PRENATAL VITAMINS W/ FOLIC ACID TABLET (FP) PO SCH (09:37)
[2020-09-15] MEDS: NICOTINE 21 MG/24 HOURS TOPICAL PATCH TD SCH (09:37)
[2020-09-15] MEDS: THIAMINE HCL 100 MG TABLET (FP) PO SCH (22:58)
[2020-09-15] MEDS: MELATONIN 5 MG TABLETS PO SCH (22:58)
[2020-09-16] MEDS: PRENATAL VITAMINS W/ FOLIC ACID TABLET (FP) PO SCH (09:33)
[2020-09-16] MEDS: NICOTINE 21 MG/24 HOURS TOPICAL PATCH TD SCH (09:34)
[2020-09-16] MEDS ORDERED: COLLOIDAL OATMEAL 1 BAR EACH TP PRN (09:50)
[2020-09-16] MEDS: CARBAMIDE PEROXIDE 6.5% OTIC 15 ML BOTTLE AU SCH ×2 (12:28→21:11)
[2020-09-16] MEDS: THIAMINE HCL 100 MG TABLET (FP) PO SCH (21:10)
[2020-09-16] MEDS: MELATONIN 5 MG TABLETS PO SCH (21:11)
[2020-09-17] MEDS: PRENATAL VITAMINS W/ FOLIC ACID TABLET (FP) PO SCH (09:40)
[2020-09-17] MEDS: NICOTINE 21 MG/24 HOURS TOPICAL PATCH TD SCH (09:40)
[2020-09-17] MEDS: CARBAMIDE PEROXIDE 6.5% OTIC 15 ML BOTTLE AU SCH ×2 (09:41→21:35)
[2020-09-17] MEDS: MELATONIN 5 MG TABLETS PO SCH (21:34)
[2020-09-17] MEDS: hydrOXYzine PAMOATE 25 MG CAPSULE (FP) PO PRN (21:35)
[2020-09-17] MEDS: THIAMINE HCL 100 MG TABLET (FP) PO SCH (21:35)
[2020-09-18] MEDS: CARBAMIDE PEROXIDE 6.5% OTIC 15 ML BOTTLE AU SCH ×2 (09:26→21:05)
[2020-09-18] MEDS: NICOTINE 21 MG/24 HOURS TOPICAL PATCH TD SCH (09:26)
[2020-09-18] MEDS: PRENATAL VITAMINS W/ FOLIC ACID TABLET (FP) PO SCH (09:26)
[2020-09-18] MEDS ORDERED: PT OWN MED DRAWER 7, Y5N ONE (19:38)
[2020-09-18] MEDS: MELATONIN 5 MG TABLETS PO SCH (21:05)
[2020-09-18] MEDS: THIAMINE HCL 100 MG TABLET (FP) PO SCH (21:05)
[2020-09-19] MEDS ORDERED: PT OWN MED DRAWER 7, Y5N ONE (08:09)
[2020-09-19] MEDS: PRENATAL VITAMINS W/ FOLIC ACID TABLET (FP) PO SCH (09:38)
[2020-09-19] MEDS: NICOTINE 21 MG/24 HOURS TOPICAL PATCH TD SCH (09:38)
[2020-09-19] MEDS: CARBAMIDE PEROXIDE 6.5% OTIC 15 ML BOTTLE AU SCH ×2 (09:38→21:25)
[2020-09-19] MEDS: hydrOXYzine PAMOATE 25 MG CAPSULE (FP) PO PRN (21:25)
[2020-09-19] MEDS: THIAMINE HCL 100 MG TABLET (FP) PO SCH (21:25)
[2020-09-19] MEDS: MELATONIN 5 MG TABLETS PO SCH (21:25)
[2020-09-20] MEDS ORDERED: PT OWN MED DRAWER 7, Y5N ONE (08:11)
[2020-09-20] MEDS: CARBAMIDE PEROXIDE 6.5% OTIC 15 ML BOTTLE AU SCH ×2 (09:36→21:27)
[2020-09-20] MEDS: PRENATAL VITAMINS W/ FOLIC ACID TABLET (FP) PO SCH (09:37)
[2020-09-20] MEDS: NICOTINE 21 MG/24 HOURS TOPICAL PATCH TD SCH (09:37)
[2020-09-20] MEDS: MELATONIN 5 MG TABLETS PO SCH (21:26)
[2020-09-20] MEDS: THIAMINE HCL 100 MG TABLET (FP) PO SCH (21:26)
[2020-09-20] MEDS: hydrOXYzine PAMOATE 25 MG CAPSULE (FP) PO PRN (21:26)
[2020-09-21] MEDS ORDERED: PT OWN MED DRAWER 7, Y5N ONE (08:37)
[2020-09-21] MEDS: PRENATAL VITAMINS W/ FOLIC ACID TABLET (FP) PO SCH (09:46)
[2020-09-21] MEDS: CARBAMIDE PEROXIDE 6.5% OTIC 15 ML BOTTLE AU SCH ×2 (09:46→21:02)
[2020-09-21] MEDS: NICOTINE 21 MG/24 HOURS TOPICAL PATCH TD SCH (09:46)
[2020-09-21] MEDS: MELATONIN 5 MG TABLETS PO SCH (21:01)
[2020-09-21] MEDS: hydrOXYzine PAMOATE 25 MG CAPSULE (FP) PO PRN (21:01)
[2020-09-21] MEDS: THIAMINE HCL 100 MG TABLET (FP) PO SCH (21:01)
[2020-09-22] MEDS: PRENATAL VITAMINS W/ FOLIC ACID TABLET (FP) PO SCH (09:23)
[2020-09-22] MEDS: NICOTINE 21 MG/24 HOURS TOPICAL PATCH TD SCH (09:23)
[2020-09-22] MEDS: CARBAMIDE PEROXIDE 6.5% OTIC 15 ML BOTTLE AU SCH ×2 (09:23→21:30)
[2020-09-22] MEDS ORDERED: PT OWN MED DRAWER 7, Y5N ONE ×2 (10:00→19:09)
[2020-09-22] MEDS: MELATONIN 5 MG TABLETS PO SCH (21:29)
[2020-09-22] MEDS: THIAMINE HCL 100 MG TABLET (FP) PO SCH (21:29)
[2020-09-22] MEDS: hydrOXYzine PAMOATE 25 MG CAPSULE (FP) PO PRN (21:30)
[2020-09-23 06:40] VITALS: TEMP 97.1
[2020-09-23] MEDS ORDERED: PT OWN MED DRAWER 7, Y5N ONE (08:27)
[2020-09-23] MEDS: NICOTINE 21 MG/24 HOURS TOPICAL PATCH TD SCH (08:59)
[2020-09-23] MEDS: PRENATAL VITAMINS W/ FOLIC ACID TABLET (FP) PO SCH (08:59)
[2020-09-23] MEDS: CARBAMIDE PEROXIDE 6.5% OTIC 15 ML BOTTLE AU SCH (09:00)
[2020-09-23 09:05] VITALS: BP 129/77; PULSE 73
== END 2020-09-23 09:00 | disposition home or self-care (01) | DRG 772 ==
LOC: YASAS 21:02 → Y3E 21:05
PROVIDERS: ADMIT Allergy & Immunology; ATTEND Allergy & Immunology
PROC: HZ42ZZZ Group Counseling for Substance Abuse Treatment, Cognitive-Behavioral (ICD-10-PCS; principal; 2020-09-08)
DX: F10.20 Alcohol dependence, uncomplicated (principal); F14.20 Cocaine dependence, uncomplicated; F12.20 Cannabis dependence, uncomplicated; F17.210 Nicotine dependence, cigarettes, uncomplicated; G47.00 Insomnia, unspecified; I10 Essential (primary) hypertension; H61.23 Impacted cerumen, bilateral; Z90.5 Acquired absence of kidney; Z59.0 Homelessness
CPT/HCPCS: 0031A; 36415; 80069; 80076; 91303; 93005; 93010

== ENCOUNTER 2021-04-25 11:53 | Inpatient (IN) | payer OTHER ==
[2021-04-25] MEDS ORDERED: guaiFENesin 200 MG/10 ML 10 ML UNIT-DOSE CUPS PO PRN (12:28)
[2021-04-25] MEDS ORDERED: LOPERAMIDE HCL 2 MG CAPSULE PO PRN (12:28)
[2021-04-25] MEDS ORDERED: MAGNESIUM HYDROX 2400MG/30ML ORAL SUSPENSION 30 ML CUP PO PRN (12:28)
[2021-04-25] MEDS ORDERED: MAG HYDROX/AL HYDROX/SIMETH 30 ML UNIT-DOSE CUP PO PRN (12:28)
[2021-04-25] MEDS ORDERED: MAGNESIUM CITRATE 300 ML BOTTLE PO PRN (12:28)
[2021-04-25] MEDS ORDERED: P-EPHED 60MG/TRIPROLIDI 2.5MG TABLET PO PRN (12:28)
[2021-04-25 13:47] VITALS: BMI 20.9
[2021-04-25] MEDS ORDERED: hydrOXYzine PAMOATE 25 MG CAPSULE (FP) PO SCH (14:00)
[2021-04-25] MEDS: COLLOIDAL OATMEAL 1 BAR EACH TP PRN (15:27)
[2021-04-25] MEDS: PRENATAL VITAMINS W/ FOLIC ACID TABLET (FP) PO SCH (15:30)
[2021-04-25] MEDS: NICOTINE 7 MG/24 HOURS TOPICAL PATCH TD SCH (15:32)
[2021-04-25 16:10] LABS: CALCIUM 9.3 mg/dL (8.5-10.1); HEMATOCRIT 36.5 % (35.4-49); HEMOGLOBIN 12.7 GM/dL (11.7-16.9); MCH 28.5 pg (25.7-33.7); MCHC 34.7 g/dl (32.0-35.9); MEAN PLT VOLUME 8.9 fl (7.5-11.1); PLATELET COUNT 188 10^3/uL (134-434); RBC 4.45 M/mm3 (4.00-5.60); RDW 14.7 % (11.9-15.9); WHITE BLOOD COUNT 5.9 K/mm3 (4.0-10.0)
[2021-04-25 16:11] LABS: ALBUMIN 3.6 g/dl (3.4-5.0); BLOOD UREA NITROGEN 25.4 mg/dL (7-18)
[2021-04-25 16:14] LABS: CREATININE 1.8 mg/dL (0.55-1.3)
[2021-04-25 16:15] LABS: BILIRUBIN,TOTAL 0.9 mg/dL (0.2-1); TOT PROT 6.5 g/dl (6.4-8.2)
[2021-04-25 16:39] LABS: SYPHILIS W/ RPR CONF NON-REACTIVE (NONREACTIVE)
[2021-04-25] MEDS: hydrOXYzine PAMOATE 25 MG CAPSULE (FP) PO PRN (21:08)
[2021-04-25] MEDS: MIRTAZAPINE 15 MG TABLET (FP) PO SCH (21:08)
[2021-04-25] MEDS: THIAMINE HCL 100 MG TABLET (FP) PO SCH (21:08)
[2021-04-25] MEDS ORDERED: MELATONIN 5 MG TABLETS PO SCH (22:00)
[2021-04-25] MEDS: VITAMINS A AND D TOPICAL OINTMENT 60 GM TUBE TP SCH (22:58)
[2021-04-26] MEDS: VITAMINS A AND D TOPICAL OINTMENT 60 GM TUBE TP SCH ×4 (00:45→17:36)
[2021-04-26] MEDS: NICOTINE 7 MG/24 HOURS TOPICAL PATCH TD SCH (09:35)
[2021-04-26] MEDS: PRENATAL VITAMINS W/ FOLIC ACID TABLET (FP) PO SCH (09:35)
[2021-04-26] MEDS: NICOTINE 10 MG CARTRIDGE (INHALER) IH PRN (10:27)
[2021-04-26] MEDS ORDERED: FLU VACC QS2021-22(6MOS UP)/PF 60 MCG/0.5 ML SYRINGE IM ONE (12:00)
[2021-04-26] MEDS: THIAMINE HCL 100 MG TABLET (FP) PO SCH (21:03)
[2021-04-26] MEDS: MIRTAZAPINE 15 MG TABLET (FP) PO SCH (21:03)
[2021-04-27] MEDS: VITAMINS A AND D TOPICAL OINTMENT 60 GM TUBE TP SCH ×4 (00:33→18:54)
[2021-04-27] MEDS: PRENATAL VITAMINS W/ FOLIC ACID TABLET (FP) PO SCH (09:40)
[2021-04-27] MEDS: ACETAMINOPHEN 325 MG TABLET (FP) PO PRN (09:40)
[2021-04-27] MEDS: NICOTINE 7 MG/24 HOURS TOPICAL PATCH TD SCH (09:40)
[2021-04-27] MEDS: THIAMINE HCL 100 MG TABLET (FP) PO SCH (21:17)
[2021-04-27] MEDS: MIRTAZAPINE 15 MG TABLET (FP) PO SCH (21:17)
[2021-04-27 21:50] LABS: PH,URINE 6.5 (5.0-8.0); URINE APPEARANCE CLOUDY; URINE BILIRUBIN NEGATIVE (NEGATIVE); URINE COLOR YELLOW; URINE GLUCOSE (UA) NEGATIVE (NEGATIVE); URINE KETONE TRACE (NEGATIVE); URINE LEUK ESTERASE NEGATIVE (NEGATIVE); URINE NITRITE NEGATIVE (NEGATIVE); URINE PROTEIN NEGATIVE (NEGATIVE)
[2021-04-28] MEDS: VITAMINS A AND D TOPICAL OINTMENT 60 GM TUBE TP SCH ×4 (00:56→18:47)
[2021-04-28] MEDS: NICOTINE 7 MG/24 HOURS TOPICAL PATCH TD SCH (09:44)
[2021-04-28] MEDS: PRENATAL VITAMINS W/ FOLIC ACID TABLET (FP) PO SCH (09:44)
[2021-04-28] MEDS: MIRTAZAPINE 15 MG TABLET (FP) PO SCH (21:11)
[2021-04-28] MEDS: hydrOXYzine PAMOATE 25 MG CAPSULE (FP) PO PRN (21:12)
[2021-04-28] MEDS: THIAMINE HCL 100 MG TABLET (FP) PO SCH (21:12)
[2021-04-29] MEDS: VITAMINS A AND D TOPICAL OINTMENT 60 GM TUBE TP SCH ×4 (01:06→19:18)
[2021-04-29] MEDS: PRENATAL VITAMINS W/ FOLIC ACID TABLET (FP) PO SCH (09:30)
[2021-04-29] MEDS: NICOTINE 7 MG/24 HOURS TOPICAL PATCH TD SCH (09:30)
[2021-04-29] MEDS: NICOTINE 10 MG CARTRIDGE (INHALER) IH PRN (19:18)
[2021-04-29] MEDS: MIRTAZAPINE 15 MG TABLET (FP) PO SCH (21:07)
[2021-04-29] MEDS: THIAMINE HCL 100 MG TABLET (FP) PO SCH (21:08)
[2021-04-30] MEDS: VITAMINS A AND D TOPICAL OINTMENT 60 GM TUBE TP SCH ×4 (00:48→18:11)
[2021-04-30] MEDS: PRENATAL VITAMINS W/ FOLIC ACID TABLET (FP) PO SCH (09:46)
[2021-04-30] MEDS: NICOTINE 7 MG/24 HOURS TOPICAL PATCH TD SCH (09:46)
[2021-04-30] MEDS: METHOCARBAMOL 500 MG TABLET PO PRN ×2 (11:14→21:12)
[2021-04-30] MEDS: THIAMINE HCL 100 MG TABLET (FP) PO SCH (21:12)
[2021-04-30] MEDS: MIRTAZAPINE 15 MG TABLET (FP) PO SCH (21:12)
[2021-04-30] MEDS: hydrOXYzine PAMOATE 25 MG CAPSULE (FP) PO PRN (21:12)
[2021-05-01] MEDS: VITAMINS A AND D TOPICAL OINTMENT 60 GM TUBE TP SCH ×3 (00:57→12:19)
[2021-05-01] MEDS: PRENATAL VITAMINS W/ FOLIC ACID TABLET (FP) PO SCH (09:41)
[2021-05-01] MEDS: METHOCARBAMOL 500 MG TABLET PO PRN ×2 (09:41→21:06)
[2021-05-01] MEDS: NICOTINE 7 MG/24 HOURS TOPICAL PATCH TD SCH (09:42)
[2021-05-01] MEDS: HYDROCHLOROTHIAZIDE 25 MG TABLET (FP) PO SCH (12:13)
[2021-05-01] MEDS: MIRTAZAPINE 15 MG TABLET (FP) PO SCH (21:08)
[2021-05-01] MEDS: THIAMINE HCL 100 MG TABLET (FP) PO SCH (21:08)
[2021-05-01] MEDS: hydrOXYzine PAMOATE 25 MG CAPSULE (FP) PO PRN (21:08)
[2021-05-02] MEDS: HYDROCHLOROTHIAZIDE 25 MG TABLET (FP) PO SCH (09:58)
[2021-05-02] MEDS: PRENATAL VITAMINS W/ FOLIC ACID TABLET (FP) PO SCH (09:58)
[2021-05-02] MEDS: NICOTINE 7 MG/24 HOURS TOPICAL PATCH TD SCH (09:58)
[2021-05-02 18:07] LABS: SARS-CoV-2 NAA Not Detected (Not Detected)
[2021-05-02] MEDS: METHOCARBAMOL 500 MG TABLET PO PRN (21:23)
[2021-05-02] MEDS: hydrOXYzine PAMOATE 25 MG CAPSULE (FP) PO PRN (21:23)
[2021-05-02] MEDS: THIAMINE HCL 100 MG TABLET (FP) PO SCH (21:23)
[2021-05-02] MEDS: MIRTAZAPINE 15 MG TABLET (FP) PO SCH (21:23)
[2021-05-03] MEDS: NICOTINE 7 MG/24 HOURS TOPICAL PATCH TD SCH (09:17)
[2021-05-03] MEDS: PRENATAL VITAMINS W/ FOLIC ACID TABLET (FP) PO SCH (09:17)
[2021-05-03] MEDS: HYDROCHLOROTHIAZIDE 25 MG TABLET (FP) PO SCH (09:18)
[2021-05-03] MEDS: NICOTINE 10 MG CARTRIDGE (INHALER) IH PRN (09:18)
[2021-05-03] MEDS: THIAMINE HCL 100 MG TABLET (FP) PO SCH (21:10)
[2021-05-03] MEDS: MIRTAZAPINE 15 MG TABLET (FP) PO SCH (21:10)
[2021-05-03] MEDS: METHOCARBAMOL 500 MG TABLET PO PRN (21:10)
[2021-05-03] MEDS: hydrOXYzine PAMOATE 25 MG CAPSULE (FP) PO PRN (21:11)
[2021-05-04] MEDS: HYDROCHLOROTHIAZIDE 25 MG TABLET (FP) PO SCH (09:13)
[2021-05-04] MEDS: PRENATAL VITAMINS W/ FOLIC ACID TABLET (FP) PO SCH (09:13)
[2021-05-04] MEDS: NICOTINE 7 MG/24 HOURS TOPICAL PATCH TD SCH (10:06)
[2021-05-04] MEDS: NICOTINE 10 MG CARTRIDGE (INHALER) IH PRN (16:04)
[2021-05-04] MEDS: MIRTAZAPINE 15 MG TABLET (FP) PO SCH (22:31)
[2021-05-04] MEDS: THIAMINE HCL 100 MG TABLET (FP) PO SCH (22:31)
[2021-05-04] MEDS: hydrOXYzine PAMOATE 25 MG CAPSULE (FP) PO PRN (22:31)
[2021-05-05] MEDS: NICOTINE 7 MG/24 HOURS TOPICAL PATCH TD SCH (09:49)
[2021-05-05] MEDS: PRENATAL VITAMINS W/ FOLIC ACID TABLET (FP) PO SCH (09:49)
[2021-05-05] MEDS: HYDROCHLOROTHIAZIDE 25 MG TABLET (FP) PO SCH (09:50)
[2021-05-05] MEDS: MIRTAZAPINE 15 MG TABLET (FP) PO SCH (21:52)
[2021-05-05] MEDS: THIAMINE HCL 100 MG TABLET (FP) PO SCH (21:52)
[2021-05-05] MEDS: hydrOXYzine PAMOATE 25 MG CAPSULE (FP) PO PRN (21:52)
[2021-05-05] MEDS: METHOCARBAMOL 500 MG TABLET PO PRN (21:52)
[2021-05-06] MEDS: HYDROCHLOROTHIAZIDE 25 MG TABLET (FP) PO SCH (07:00)
[2021-05-06] MEDS: PRENATAL VITAMINS W/ FOLIC ACID TABLET (FP) PO SCH (09:49)
[2021-05-06] MEDS: METHOCARBAMOL 500 MG TABLET PO PRN ×2 (09:49→21:56)
[2021-05-06] MEDS: NICOTINE 7 MG/24 HOURS TOPICAL PATCH TD SCH (09:50)
[2021-05-06] MEDS: NICOTINE 10 MG CARTRIDGE (INHALER) IH PRN (09:58)
[2021-05-06] MEDS: LISINOPRIL 5 MG TABLET PO SCH (14:18)
[2021-05-06] MEDS: MIRTAZAPINE 15 MG TABLET (FP) PO SCH (21:55)
[2021-05-06] MEDS: THIAMINE HCL 100 MG TABLET (FP) PO SCH (21:55)
[2021-05-07] MEDS: PRENATAL VITAMINS W/ FOLIC ACID TABLET (FP) PO SCH (10:11)
[2021-05-07] MEDS: LISINOPRIL 5 MG TABLET PO SCH (10:11)
[2021-05-07] MEDS: METHOCARBAMOL 500 MG TABLET PO PRN (10:12)
[2021-05-07] MEDS: HYDROCHLOROTHIAZIDE 25 MG TABLET (FP) PO SCH (10:12)
[2021-05-07] MEDS: NICOTINE 7 MG/24 HOURS TOPICAL PATCH TD SCH (10:12)
[2021-05-07] MEDS: COLLOIDAL OATMEAL 1 BAR EACH TP PRN (13:32)
[2021-05-07] MEDS: MIRTAZAPINE 15 MG TABLET (FP) PO SCH (21:40)
[2021-05-07] MEDS: THIAMINE HCL 100 MG TABLET (FP) PO SCH (21:40)
[2021-05-08] MEDS: PRENATAL VITAMINS W/ FOLIC ACID TABLET (FP) PO SCH (10:20)
[2021-05-08] MEDS: LISINOPRIL 5 MG TABLET PO SCH (10:21)
[2021-05-08] MEDS: HYDROCHLOROTHIAZIDE 25 MG TABLET (FP) PO SCH (10:21)
[2021-05-08] MEDS: NICOTINE 10 MG CARTRIDGE (INHALER) IH PRN (10:21)
[2021-05-08] MEDS: NICOTINE 7 MG/24 HOURS TOPICAL PATCH TD SCH (10:21)
[2021-05-08] MEDS: MIRTAZAPINE 15 MG TABLET (FP) PO SCH (21:46)
[2021-05-08] MEDS: METHOCARBAMOL 500 MG TABLET PO PRN (21:46)
[2021-05-08] MEDS: THIAMINE HCL 100 MG TABLET (FP) PO SCH (21:46)
[2021-05-09] MEDS: PRENATAL VITAMINS W/ FOLIC ACID TABLET (FP) PO SCH (10:07)
[2021-05-09] MEDS: NICOTINE 7 MG/24 HOURS TOPICAL PATCH TD SCH (10:07)
[2021-05-09] MEDS: LISINOPRIL 5 MG TABLET PO SCH (10:08)
[2021-05-09] MEDS: HYDROCHLOROTHIAZIDE 25 MG TABLET (FP) PO SCH (10:08)
[2021-05-09] MEDS: MIRTAZAPINE 15 MG TABLET (FP) PO SCH (21:50)
[2021-05-09] MEDS: THIAMINE HCL 100 MG TABLET (FP) PO SCH (21:50)
[2021-05-10] MEDS: LISINOPRIL 5 MG TABLET PO SCH (10:03)
[2021-05-10] MEDS: PRENATAL VITAMINS W/ FOLIC ACID TABLET (FP) PO SCH (10:03)
[2021-05-10] MEDS: NICOTINE 7 MG/24 HOURS TOPICAL PATCH TD SCH (10:03)
[2021-05-10] MEDS: HYDROCHLOROTHIAZIDE 25 MG TABLET (FP) PO SCH (10:03)
[2021-05-10] MEDS: IBUPROFEN 400 MG TABLET (FP) PO PRN ×2 (12:04→19:52)
[2021-05-10] MEDS: THIAMINE HCL 100 MG TABLET (FP) PO SCH (21:40)
[2021-05-10] MEDS: METHOCARBAMOL 500 MG TABLET PO PRN (21:40)
[2021-05-10] MEDS: hydrOXYzine PAMOATE 25 MG CAPSULE (FP) PO PRN (21:40)
[2021-05-10] MEDS: MIRTAZAPINE 15 MG TABLET (FP) PO SCH (21:40)
[2021-05-11] MEDS: PRENATAL VITAMINS W/ FOLIC ACID TABLET (FP) PO SCH (10:27)
[2021-05-11] MEDS: HYDROCHLOROTHIAZIDE 25 MG TABLET (FP) PO SCH (10:27)
[2021-05-11] MEDS: LISINOPRIL 5 MG TABLET PO SCH (10:28)
[2021-05-11] MEDS: NICOTINE 7 MG/24 HOURS TOPICAL PATCH TD SCH (10:28)
[2021-05-11] MEDS: ACETAMINOPHEN 325 MG TABLET (FP) PO PRN (10:29)
[2021-05-11] MEDS: NICOTINE 10 MG CARTRIDGE (INHALER) IH PRN (12:28)
[2021-05-11] MEDS: THIAMINE HCL 100 MG TABLET (FP) PO SCH (21:32)
[2021-05-11] MEDS: hydrOXYzine PAMOATE 25 MG CAPSULE (FP) PO PRN (21:32)
[2021-05-11] MEDS: METHOCARBAMOL 500 MG TABLET PO PRN (21:32)
[2021-05-11] MEDS: MIRTAZAPINE 15 MG TABLET (FP) PO SCH (21:32)
[2021-05-12] MEDS: HYDROCHLOROTHIAZIDE 25 MG TABLET (FP) PO SCH (09:59)
[2021-05-12] MEDS: NICOTINE 10 MG CARTRIDGE (INHALER) IH PRN (10:00)
[2021-05-12] MEDS: PRENATAL VITAMINS W/ FOLIC ACID TABLET (FP) PO SCH (10:00)
[2021-05-12] MEDS: LISINOPRIL 5 MG TABLET PO SCH (10:00)
[2021-05-12] MEDS: NICOTINE 7 MG/24 HOURS TOPICAL PATCH TD SCH (10:00)
[2021-05-12] MEDS: ACETAMINOPHEN 325 MG TABLET (FP) PO PRN (11:09)
[2021-05-12] MEDS: THIAMINE HCL 100 MG TABLET (FP) PO SCH (21:30)
[2021-05-12] MEDS: MIRTAZAPINE 15 MG TABLET (FP) PO SCH (21:30)
[2021-05-13] MEDS: NICOTINE 7 MG/24 HOURS TOPICAL PATCH TD SCH (09:59)
[2021-05-13] MEDS: PRENATAL VITAMINS W/ FOLIC ACID TABLET (FP) PO SCH (09:59)
[2021-05-13] MEDS: HYDROCHLOROTHIAZIDE 25 MG TABLET (FP) PO SCH (09:59)
[2021-05-13] MEDS: LISINOPRIL 5 MG TABLET PO SCH (09:59)
[2021-05-13] MEDS: MIRTAZAPINE 15 MG TABLET (FP) PO SCH (21:41)
[2021-05-13] MEDS: THIAMINE HCL 100 MG TABLET (FP) PO SCH (21:41)
[2021-05-14] MEDS: LISINOPRIL 5 MG TABLET PO SCH (10:07)
[2021-05-14] MEDS: HYDROCHLOROTHIAZIDE 25 MG TABLET (FP) PO SCH (10:07)
[2021-05-14] MEDS: NICOTINE 7 MG/24 HOURS TOPICAL PATCH TD SCH (10:07)
[2021-05-14] MEDS: PRENATAL VITAMINS W/ FOLIC ACID TABLET (FP) PO SCH (10:07)
[2021-05-14] MEDS: MIRTAZAPINE 15 MG TABLET (FP) PO SCH (21:27)
[2021-05-14] MEDS: THIAMINE HCL 100 MG TABLET (FP) PO SCH (21:27)
[2021-05-15 07:25] VITALS: TEMP 97.6
[2021-05-15] MEDS: PRENATAL VITAMINS W/ FOLIC ACID TABLET (FP) PO SCH (09:44)
[2021-05-15] MEDS: HYDROCHLOROTHIAZIDE 25 MG TABLET (FP) PO SCH (09:45)
[2021-05-15] MEDS: NICOTINE 7 MG/24 HOURS TOPICAL PATCH TD SCH (09:45)
[2021-05-15] MEDS: LISINOPRIL 5 MG TABLET PO SCH (09:45)
[2021-05-15 10:47] VITALS: BP 144/87; PULSE 72
== END 2021-05-15 09:52 | disposition home or self-care (01) | DRG 772 ==
LOC: YASAS 11:53 → Y5N 13:35
PROVIDERS: ADMIT Allergy & Immunology; ATTEND Allergy & Immunology
PROC: HZ42ZZZ Group Counseling for Substance Abuse Treatment, Cognitive-Behavioral (ICD-10-PCS; principal; 2021-04-25)
DX: F10.20 Alcohol dependence, uncomplicated (principal); F14.20 Cocaine dependence, uncomplicated; F12.20 Cannabis dependence, uncomplicated; F17.210 Nicotine dependence, cigarettes, uncomplicated; F31.9 Bipolar disorder, unspecified; F19.24 Other psychoactive substance dependence with psychoactive substance-induced mood disorder; F41.9 Anxiety disorder, unspecified; I10 Essential (primary) hypertension; R63.4 Abnormal weight loss; Z68.20 Body mass index [BMI] 20.0-20.9, adult; Z90.5 Acquired absence of kidney
CPT/HCPCS: 36415; 80053; 81003; 82962; 85027; 86780; 86803; 90686; C9803-CS; G0008; U0003; U0005

== ENCOUNTER 2021-11-11 14:52 | Inpatient (IN) | payer OTHER ==
[2021-11-11 18:40] VITALS: BMI 28.7
[2021-11-11] MEDS ORDERED: P-EPHED 60MG/TRIPROLIDI 2.5MG TABLET PO PRN (20:10)
[2021-11-11] MEDS ORDERED: LOPERAMIDE HCL 2 MG CAPSULE PO PRN (20:10)
[2021-11-11] MEDS ORDERED: guaiFENesin 200 MG/10 ML 10 ML UNIT-DOSE CUPS PO PRN (20:10)
[2021-11-11] MEDS ORDERED: NICOTINE POLACRILEX 2 MG GUM BC PRN (20:10)
[2021-11-11] MEDS ORDERED: IBUPROFEN 400 MG TABLET (FP) PO PRN (20:10)
[2021-11-11] MEDS ORDERED: MAGNESIUM CITRATE 300 ML BOTTLE PO PRN (20:10)
[2021-11-11] MEDS ORDERED: MAGNESIUM HYDROX 2400MG/30ML ORAL SUSPENSION 30 ML CUP PO PRN (20:10)
[2021-11-11] MEDS ORDERED: ACETAMINOPHEN 325 MG TABLET (FP) PO PRN (20:10)
[2021-11-11] MEDS ORDERED: MAG HYDROX/AL HYDROX/SIMETH 30 ML UNIT-DOSE CUP PO PRN (20:10)
[2021-11-12] MEDS ORDERED: TUBERCULIN PPD 5 TU/0.1ML VIAL ID ONE (01:02)
[2021-11-12] MEDS: MELATONIN 5 MG TABLETS PO SCH ×2 (01:35→21:07)
[2021-11-12] MEDS: THIAMINE HCL 100 MG TABLET (FP) PO SCH ×2 (01:36→21:07)
[2021-11-12] MEDS: PRENATAL VITAMINS W/ FOLIC ACID TABLET (FP) PO SCH (09:28)
[2021-11-12] MEDS: NICOTINE 21 MG/24 HOURS TOPICAL PATCH TD SCH (09:28)
[2021-11-12 14:09] LABS: HEMOGLOBIN 12.6 GM/dL (11.7-16.9); MCH 27.8 pg (25.7-33.7); MCHC 33.3 g/dl (32.0-35.9); MEAN CELL VOLUME 83.5 fl (80-96); PLATELET COUNT 245 10^3/uL (134-434); RBC 4.54 M/mm3 (4.00-5.60); RDW 15.2 % (11.9-15.9); WHITE BLOOD COUNT 4.2 K/mm3 (4.0-10.0)
[2021-11-12 14:17] LABS: CALCIUM 8.8 mg/dL (8.5-10.1)
[2021-11-12 14:18] LABS: ALBUMIN 3.2 g/dl (3.4-5.0); BLOOD UREA NITROGEN 21.6 mg/dL (7-18)
[2021-11-12 14:21] LABS: CREATININE 1.6 mg/dL (0.55-1.3)
[2021-11-12 14:22] LABS: BILIRUBIN,TOTAL 0.6 mg/dL (0.2-1); TOT PROT 5.9 g/dl (6.4-8.2)
[2021-11-12 14:37] LABS: SYPHILIS W/ RPR CONF NON-REACTIVE (NONREACTIVE)
[2021-11-12] MEDS ORDERED: NICOTINE 10 MG CARTRIDGE (INHALER) IH PRN (17:39)
[2021-11-13] MEDS: NICOTINE 21 MG/24 HOURS TOPICAL PATCH TD SCH (09:37)
[2021-11-13] MEDS: PRENATAL VITAMINS W/ FOLIC ACID TABLET (FP) PO SCH (09:37)
[2021-11-13 11:53] LABS: HIV INTERPRETATION NEGATIVE (NEGATIVE)
[2021-11-13 12:47] LABS: PH,URINE 7.5 (5.0-8.0); URINE APPEARANCE CLEAR; URINE BILIRUBIN NEGATIVE (NEGATIVE); URINE COLOR YELLOW; URINE GLUCOSE (UA) NEGATIVE (NEGATIVE); URINE KETONE NEGATIVE (NEGATIVE); URINE LEUK ESTERASE NEGATIVE (NEGATIVE); URINE NITRITE NEGATIVE (NEGATIVE); URINE PROTEIN NEGATIVE (NEGATIVE); URINE UROBILINOGEN 0.2 mg/dL (0.2-1.0)
[2021-11-13] MEDS: COLLOIDAL OATMEAL 1 BAR EACH TP PRN (16:53)
[2021-11-13] MEDS: MELATONIN 5 MG TABLETS PO SCH (21:09)
[2021-11-13] MEDS: THIAMINE HCL 100 MG TABLET (FP) PO SCH (21:09)
[2021-11-14] MEDS: NICOTINE 21 MG/24 HOURS TOPICAL PATCH TD SCH (09:48)
[2021-11-14] MEDS: PRENATAL VITAMINS W/ FOLIC ACID TABLET (FP) PO SCH (09:48)
[2021-11-14] MEDS: THIAMINE HCL 100 MG TABLET (FP) PO SCH (21:22)
[2021-11-14] MEDS: MELATONIN 5 MG TABLETS PO SCH (21:22)
[2021-11-15] MEDS: PRENATAL VITAMINS W/ FOLIC ACID TABLET (FP) PO SCH (09:33)
[2021-11-15] MEDS: HYDROCHLOROTHIAZIDE 25 MG TABLET (FP) PO SCH (09:33)
[2021-11-15] MEDS: NICOTINE 21 MG/24 HOURS TOPICAL PATCH TD SCH (09:34)
[2021-11-15] MEDS: THIAMINE HCL 100 MG TABLET (FP) PO SCH (21:18)
[2021-11-15] MEDS: MELATONIN 5 MG TABLETS PO SCH (21:18)
[2021-11-16] MEDS: PRENATAL VITAMINS W/ FOLIC ACID TABLET (FP) PO SCH (09:36)
[2021-11-16] MEDS: HYDROCHLOROTHIAZIDE 25 MG TABLET (FP) PO SCH (09:36)
[2021-11-16] MEDS: NICOTINE 21 MG/24 HOURS TOPICAL PATCH TD SCH (09:37)
[2021-11-16] MEDS: TOPIRAMATE 25 MG TABLET PO SCH ×2 (13:07→21:36)
[2021-11-16] MEDS: THIAMINE HCL 100 MG TABLET (FP) PO SCH (21:35)
[2021-11-16] MEDS: MELATONIN 5 MG TABLETS PO SCH (21:36)
[2021-11-17 06:37] VITALS: BP 130/82; PULSE 55; RESP 20; TEMP 97.3
[2021-11-17] MEDS: COLLOIDAL OATMEAL 1 BAR EACH TP PRN (06:43)
[2021-11-17] MEDS: PRENATAL VITAMINS W/ FOLIC ACID TABLET (FP) PO SCH (09:34)
[2021-11-17] MEDS: HYDROCHLOROTHIAZIDE 25 MG TABLET (FP) PO SCH (09:34)
[2021-11-17] MEDS: TOPIRAMATE 25 MG TABLET PO SCH (09:34)
[2021-11-17] MEDS: NICOTINE 21 MG/24 HOURS TOPICAL PATCH TD SCH (09:35)
[2021-11-17] MEDS ORDERED: LISINOPRIL 5 MG TABLET PO SCH (14:15)
== END 2021-11-17 14:10 | disposition home or self-care (01) | DRG 772 ==
LOC: YASAS 14:52 → Y3E 23:09
PROVIDERS: ADMIT Allergy & Immunology; ATTEND Psychiatry & Neurology Pain Medicine
PROC: HZ42ZZZ Group Counseling for Substance Abuse Treatment, Cognitive-Behavioral (ICD-10-PCS; principal; 2021-11-11)
DX: F10.20 Alcohol dependence, uncomplicated (principal); F14.20 Cocaine dependence, uncomplicated; F12.20 Cannabis dependence, uncomplicated; F17.210 Nicotine dependence, cigarettes, uncomplicated; F19.24 Other psychoactive substance dependence with psychoactive substance-induced mood disorder; F10.24 Alcohol dependence with alcohol-induced mood disorder; F31.9 Bipolar disorder, unspecified; F41.8 Other specified anxiety disorders; I10 Essential (primary) hypertension; Z28.310 Unvaccinated for COVID-19; Z28.9 Immunization not carried out for unspecified reason; Z56.0 Unemployment, unspecified; Z59.00 Homelessness unspecified
CPT/HCPCS: 36415; 80053; 81003; 85027; 86780; 86803; 87389; C9803-CS; U0003; U0005

== ENCOUNTER 2022-01-08 18:48 | Inpatient (IN) | payer OTHER ==
[2022-01-08 19:41] VITALS: BMI 21.3
[2022-01-08] MEDS ORDERED: ONDANSETRON *ODT* 4 MG TABLET SL PRN (20:38)
[2022-01-08] MEDS ORDERED: LOPERAMIDE HCL 2 MG CAPSULE PO PRN (20:38)
[2022-01-08] MEDS ORDERED: BISMUTH SUBSALICYLATE 524 MG/30 ML PO PRN (20:38)
[2022-01-08] MEDS ORDERED: P-EPHED 60MG/TRIPROLIDI 2.5MG TABLET PO PRN (20:38)
[2022-01-08] MEDS ORDERED: DICYCLOMINE HCL 10 MG CAPSULE PO PRN (20:38)
[2022-01-08] MEDS ORDERED: IBUPROFEN 600 MG TABLET (FP) PO PRN (20:38)
[2022-01-08] MEDS ORDERED: MAGNESIUM CITRATE 300 ML BOTTLE PO PRN (20:38)
[2022-01-08] MEDS ORDERED: ACETAMINOPHEN 325 MG TABLET (FP) PO PRN ×2 (20:38)
[2022-01-08] MEDS ORDERED: METHOCARBAMOL 500 MG TABLET PO PRN (20:38)
[2022-01-08] MEDS ORDERED: hydrOXYzine PAMOATE 25 MG CAPSULE (FP) PO PRN (20:38)
[2022-01-08] MEDS ORDERED: BENZOCAINE/MENTHOL (CHLORASEPTIC ) LOZENGE MM PRN (20:38)
[2022-01-08] MEDS ORDERED: MAGNESIUM HYDROX 2400MG/30ML ORAL SUSPENSION 30 ML CUP PO PRN (20:38)
[2022-01-08] MEDS ORDERED: NALOXONE HCL (KLOXXADO) 8 MG SPRAY NS PRN (20:38)
[2022-01-08] MEDS ORDERED: MAG HYDROX/AL HYDROX/SIMETH 30 ML UNIT-DOSE CUP PO PRN (20:38)
[2022-01-08] MEDS ORDERED: NICOTINE POLACRILEX 2 MG GUM BUC PRN (20:38)
[2022-01-08] MEDS ORDERED: IBUPROFEN 400 MG TABLET (FP) PO PRN (20:38)
[2022-01-08] MEDS ORDERED: guaiFENesin 200 MG/10 ML 10 ML UNIT-DOSE CUPS PO PRN (20:38)
[2022-01-08] MEDS ORDERED: MELATONIN 5 MG TABLETS PO SCH (22:00)
[2022-01-08] MEDS ORDERED: THIAMINE HCL 100 MG TABLET (FP) PO SCH (22:00)
[2022-01-09 09:05] VITALS: RESP 16
[2022-01-09] MEDS ORDERED: NICOTINE 21 MG/24 HOURS TOPICAL PATCH TD SCH (10:00)
[2022-01-09] MEDS ORDERED: PRENATAL VITAMINS W/ FOLIC ACID TABLET (FP) PO SCH (10:00)
[2022-01-09 11:56] LABS: HEMATOCRIT 40.7 % (35.4-49); HEMOGLOBIN 13.8 GM/dL (11.7-16.9); MCH 27.9 pg (25.7-33.7); MCHC 33.8 g/dl (32.0-35.9); MEAN CELL VOLUME 82.6 fl (80-96); PLATELET COUNT 236 10^3/uL (134-434); RBC 4.93 M/mm3 (4.00-5.60); RDW 14.6 % (11.9-15.9); WHITE BLOOD COUNT 3.9 K/mm3 (4.0-10.0)
[2022-01-09 12:07] LABS: ALBUMIN 3.2 g/dl (3.4-5.0); BLOOD UREA NITROGEN 31.1 mg/dL (7-18); CALCIUM 8.8 mg/dL (8.5-10.1)
[2022-01-09 12:10] LABS: CREATININE 1.7 mg/dL (0.55-1.3)
[2022-01-09 12:12] LABS: BILIRUBIN,TOTAL 0.7 mg/dL (0.2-1); TOT PROT 5.7 g/dl (6.4-8.2)
[2022-01-09 13:05] VITALS: BP 129/70; PULSE 53; TEMP 97.3
[2022-01-09 13:06] LABS: HIV INTERPRETATION NEGATIVE (NEGATIVE)
== END 2022-01-09 15:35 | disposition home or self-care (01) | DRG 774 ==
LOC: YASAS 18:48 → Y6N 21:40
PROVIDERS: ADMIT Allergy & Immunology; ATTEND Surgery
PROC: HZ2ZZZZ Detoxification Services for Substance Abuse Treatment (ICD-10-PCS; principal; 2022-01-08)
DX: F14.10 Cocaine abuse, uncomplicated (principal); F10.10 Alcohol abuse, uncomplicated; F12.20 Cannabis dependence, uncomplicated; F17.210 Nicotine dependence, cigarettes, uncomplicated; F19.282 Other psychoactive substance dependence with psychoactive substance-induced sleep disorder; F19.24 Other psychoactive substance dependence with psychoactive substance-induced mood disorder; I10 Essential (primary) hypertension; Z90.5 Acquired absence of kidney; Z56.0 Unemployment, unspecified; Z59.00 Homelessness unspecified
CPT/HCPCS: 36415; 80053; 85027; 86780; 87389; C9803-CS; U0003; U0005

== ENCOUNTER 2022-01-26 12:53 | Inpatient (IN) | payer OTHER ==
[2022-01-26 15:11] VITALS: BMI 20.7
[2022-01-26] MEDS ORDERED: IBUPROFEN 400 MG TABLET (FP) PO PRN (15:31)
[2022-01-26] MEDS ORDERED: ONDANSETRON *ODT* 4 MG TABLET SL PRN (15:31)
[2022-01-26] MEDS ORDERED: ACETAMINOPHEN 325 MG TABLET (FP) PO PRN ×2 (15:31)
[2022-01-26] MEDS ORDERED: DICYCLOMINE HCL 10 MG CAPSULE PO PRN (15:31)
[2022-01-26] MEDS ORDERED: MAG HYDROX/AL HYDROX/SIMETH 30 ML UNIT-DOSE CUP PO PRN (15:31)
[2022-01-26] MEDS ORDERED: BENZOCAINE/MENTHOL (CHLORASEPTIC ) LOZENGE MM PRN (15:31)
[2022-01-26] MEDS ORDERED: BISMUTH SUBSALICYLATE 262 MG/15 ML BTL PO PRN (15:31)
[2022-01-26] MEDS ORDERED: NALOXONE HCL (KLOXXADO) 8 MG SPRAY NS PRN (15:31)
[2022-01-26] MEDS ORDERED: NICOTINE 10 MG CARTRIDGE (INHALER) IH PRN (15:31)
[2022-01-26] MEDS ORDERED: LOPERAMIDE HCL 2 MG CAPSULE PO PRN (15:31)
[2022-01-26] MEDS: LISINOPRIL 5 MG TABLET PO SCH (18:36)
[2022-01-26] MEDS: HYDROCHLOROTHIAZIDE 25 MG TABLET (FP) PO SCH (18:36)
[2022-01-26] MEDS: PRENATAL VITAMINS W/ FOLIC ACID TABLET (FP) PO SCH (18:38)
[2022-01-26] MEDS: MELATONIN 5 MG TABLETS PO SCH (21:48)
[2022-01-26] MEDS: THIAMINE HCL 100 MG TABLET (FP) PO SCH (21:48)
[2022-01-26] MEDS: hydrOXYzine PAMOATE 25 MG CAPSULE (FP) PO PRN (21:48)
[2022-01-27] MEDS: HYDROCHLOROTHIAZIDE 25 MG TABLET (FP) PO SCH (10:44)
[2022-01-27] MEDS: LISINOPRIL 5 MG TABLET PO SCH (10:44)
[2022-01-27] MEDS: PRENATAL VITAMINS W/ FOLIC ACID TABLET (FP) PO SCH (10:45)
[2022-01-27 12:23] LABS: HEMATOCRIT 40.6 % (35.4-49); HEMOGLOBIN 13.4 GM/dL (11.7-16.9); MCH 27.3 pg (25.7-33.7); MCHC 33.1 g/dl (32.0-35.9); MEAN CELL VOLUME 82.5 fl (80-96); MEAN PLT VOLUME 8.8 fl (7.5-11.1); PLATELET COUNT 229 10^3/uL (134-434); RBC 4.92 M/mm3 (4.00-5.60); RDW 14.9 % (11.9-15.9); WHITE BLOOD COUNT 5.8 K/mm3 (4.0-10.0)
[2022-01-27 12:37] LABS: ALBUMIN 3.1 g/dl (3.4-5.0); BLOOD UREA NITROGEN 22.7 mg/dL (7-18); CALCIUM 8.5 mg/dL (8.5-10.1)
[2022-01-27 12:40] LABS: CREATININE 1.5 mg/dL (0.55-1.3)
[2022-01-27 12:42] LABS: BILIRUBIN,TOTAL 0.7 mg/dL (0.2-1); TOT PROT 5.7 g/dl (6.4-8.2)
[2022-01-27] MEDS ORDERED: COLLOIDAL OATMEAL 1 BAR EACH TP PRN (14:03)
[2022-01-27] MEDS ORDERED: chlordiazePOXIDE HCL 25 MG CAPSULE PO PRN (14:05)
[2022-01-27] MEDS: chlordiazePOXIDE HCL 25 MG CAPSULE PO SCH ×2 (18:01→22:41)
[2022-01-27] MEDS: MELATONIN 5 MG TABLETS PO SCH (22:41)
[2022-01-27] MEDS: THIAMINE HCL 100 MG TABLET (FP) PO SCH (22:41)
[2022-01-28] MEDS: chlordiazePOXIDE HCL 25 MG CAPSULE PO SCH ×4 (05:32→22:52)
[2022-01-28] MEDS: PRENATAL VITAMINS W/ FOLIC ACID TABLET (FP) PO SCH (10:34)
[2022-01-28] MEDS: HYDROCHLOROTHIAZIDE 25 MG TABLET (FP) PO SCH (10:34)
[2022-01-28] MEDS: LISINOPRIL 5 MG TABLET PO SCH (10:34)
[2022-01-28 12:55] LABS: CREATININE 1.5 mg/dL (0.55-1.3)
[2022-01-28] MEDS: MAGNESIUM HYDROX 2400MG/30ML ORAL SUSPENSION 30 ML CUP PO PRN (17:50)
[2022-01-28] MEDS: SUVOREXANT 10 MG TABLET PO PRN (22:40)
[2022-01-28] MEDS: hydrOXYzine PAMOATE 25 MG CAPSULE (FP) PO PRN (22:52)
[2022-01-28] MEDS: THIAMINE HCL 100 MG TABLET (FP) PO SCH (22:53)
[2022-01-29] MEDS: chlordiazePOXIDE HCL 25 MG CAPSULE PO SCH ×4 (05:38→22:32)
[2022-01-29] MEDS: HYDROCHLOROTHIAZIDE 25 MG TABLET (FP) PO SCH (10:42)
[2022-01-29] MEDS: LISINOPRIL 5 MG TABLET PO SCH (10:42)
[2022-01-29] MEDS: PRENATAL VITAMINS W/ FOLIC ACID TABLET (FP) PO SCH (10:42)
[2022-01-29] MEDS: METHOCARBAMOL 500 MG TABLET PO PRN (15:51)
[2022-01-29] MEDS: SUVOREXANT 10 MG TABLET PO PRN (22:36)
[2022-01-29] MEDS: POLYETHYLENE GLYCOL (HEALTHYLAX) 3350 17 GM PACKET PO PRN (22:46)
[2022-01-29] MEDS: hydrOXYzine PAMOATE 25 MG CAPSULE (FP) PO PRN (22:49)
[2022-01-29] MEDS: THIAMINE HCL 100 MG TABLET (FP) PO SCH (22:49)
[2022-01-30] MEDS ORDERED: chlordiazePOXIDE HCL 10 MG CAPSULE PO PRN
[2022-01-30] MEDS: chlordiazePOXIDE HCL 10 MG CAPSULE PO SCH ×4 (06:01→22:55)
[2022-01-30] MEDS: METHOCARBAMOL 500 MG TABLET PO PRN ×2 (10:30→22:55)
[2022-01-30] MEDS: LISINOPRIL 5 MG TABLET PO SCH (10:30)
[2022-01-30] MEDS: PRENATAL VITAMINS W/ FOLIC ACID TABLET (FP) PO SCH (10:30)
[2022-01-30] MEDS: HYDROCHLOROTHIAZIDE 25 MG TABLET (FP) PO SCH (10:30)
[2022-01-30] MEDS: MAGNESIUM HYDROX 2400MG/30ML ORAL SUSPENSION 30 ML CUP PO PRN (17:59)
[2022-01-30] MEDS: IBUPROFEN 600 MG TABLET (FP) PO PRN (19:26)
[2022-01-30] MEDS: hydrOXYzine PAMOATE 25 MG CAPSULE (FP) PO PRN (22:55)
[2022-01-30] MEDS: THIAMINE HCL 100 MG TABLET (FP) PO SCH (22:55)
[2022-01-30] MEDS: SUVOREXANT 10 MG TABLET PO PRN (22:57)
[2022-01-31] MEDS: chlordiazePOXIDE HCL 10 MG CAPSULE PO SCH ×2 (05:54→17:48)
[2022-01-31] MEDS: PRENATAL VITAMINS W/ FOLIC ACID TABLET (FP) PO SCH (10:23)
[2022-01-31] MEDS: LISINOPRIL 5 MG TABLET PO SCH (10:25)
[2022-01-31] MEDS: HYDROCHLOROTHIAZIDE 25 MG TABLET (FP) PO SCH (10:25)
[2022-01-31] MEDS: IBUPROFEN 600 MG TABLET (FP) PO PRN (10:26)
[2022-01-31] MEDS: POLYETHYLENE GLYCOL (HEALTHYLAX) 3350 17 GM PACKET PO PRN (15:27)
[2022-01-31 16:56] VITALS: RESP 18
[2022-01-31] MEDS: SUVOREXANT 10 MG TABLET PO PRN (21:15)
[2022-01-31] MEDS: THIAMINE HCL 100 MG TABLET (FP) PO SCH (21:22)
[2022-01-31] MEDS: METHOCARBAMOL 500 MG TABLET PO PRN (21:22)
[2022-02-01] MEDS ORDERED: chlordiazePOXIDE HCL 10 MG CAPSULE PO ONE (05:00)
[2022-02-01 08:58] VITALS: BP 136/84; PULSE 62; TEMP 97.3
[2022-02-01] MEDS: PRENATAL VITAMINS W/ FOLIC ACID TABLET (FP) PO SCH (09:47)
[2022-02-01] MEDS: HYDROCHLOROTHIAZIDE 25 MG TABLET (FP) PO SCH (09:47)
[2022-02-01] MEDS: LISINOPRIL 5 MG TABLET PO SCH (09:47)
== END 2022-02-01 09:52 | disposition home or self-care (01) | DRG 774 ==
LOC: YASAS 12:53 → Y3N 17:14
PROVIDERS: ADMIT Allergy & Immunology; ATTEND Surgery
PROC: HZ2ZZZZ Detoxification Services for Substance Abuse Treatment (ICD-10-PCS; principal; 2022-01-26)
DX: F10.230 Alcohol dependence with withdrawal, uncomplicated (principal); F14.20 Cocaine dependence, uncomplicated; F12.20 Cannabis dependence, uncomplicated; F17.210 Nicotine dependence, cigarettes, uncomplicated; F19.282 Other psychoactive substance dependence with psychoactive substance-induced sleep disorder; F19.24 Other psychoactive substance dependence with psychoactive substance-induced mood disorder; U07.1 COVID-19; I10 Essential (primary) hypertension; Z56.0 Unemployment, unspecified; Z59.00 Homelessness unspecified
CPT/HCPCS: 36415; 80053; 82565; 84520; 85027; 86780; C9803-CS; U0003; U0005